=== PATIENT | male | born 1950 | race African-American/Black ===

== ENCOUNTER 2018-08-28 23:11 | Inpatient (IN) | payer MEDICARE ==
[2018-08-29] VITALS: BP 137/82
[2018-08-29] MEDS ORDERED: Magnesium Hydroxide (MOM) 30 mL UDC PO PRN (00:54)
[2018-08-29] MEDS ORDERED: Maalox 30 mL Cup PO PRN (00:54)
[2018-08-29 07:43] LABS: ANION GAP 13.1 (7.0-16.0); BUN - UREA NITROGEN 12 mg/dL (7-25); CARBON DIOXIDE 25.7 mEq/L (21.0-31.0); CHLORIDE 104 mEq/L (98-107); CHOLESTEROL 132 mg/dL (<200); CREATININE - SERUM 0.7 mg/dL (0.7-1.3); GFR AFRICAN-AMERICAN > 60.0 ml/min (>90); GFR NON AFRICAN-AMERICAN > 60.0 ml/min; GLUCOSE 100 mg/dL (70-105); HDL -HIGH DENSITY LIPOPROTEIN 36 mg/dL (23-92); POTASSIUM SERUM 3.8 mEq/L (3.5-5.1); SODIUM SERUM 139 mEq/L (136-145); TRIGLYCERIDES 65 mg/dL (<150); VALPROIC ACID < 10.0 ug/mL (50.0-100.0)
[2018-08-29] MEDS: Multivitamin Tab PO SCH (08:39)
[2018-08-29 10:01] LABS: HEMATOCRIT 43.9 % (41.0-60); HEMOGLOBIN 14.2 gm/dL (12-16); MEAN CELL VOLUME 89.6 fl (80-99); MEAN CORPUSCULAR HEMOGLOBIN 28.9 pg (27.0-31.0); MEAN CORPUSCULAR HGB CONC 32.3 pg (28.0-36.0); PLATELET COUNT 159 Th/cmm (150-400); RED BLOOD COUNT 4.89 Mil/cmm (3.80-5.80); RED CELL DISTRIBUTION WIDTH 15.8 % (11.5-20.0); WHITE BLOOD COUNT 8.1 Th/cmm (4.8-10.8)
[2018-08-29 10:02] LABS: MEAN PLATELET VOLUME 7.8 fl
[2018-08-29 11:22] LABS: BAND NEUTROPHILE 0 % (0-10); LYMPHOCYTE 27.9 % (20-50); MONOCYTE 15.4 % (2-10)
[2018-08-29 11:23] LABS: BASOPHIL 0.4 % (0-3); EOSINOPHIL 4.3 % (0-5)
--- NOTE | 2018-08-29 21:06 | History & Physical ---
ADMIT DATE: 08/29/2018 HISTORY OF PRESENT ILLNESS: The patient is a 68-year-old male with long history of gastroesophageal reflux, degenerative joint disease, chronic back pain, schizophrenia, admitted to [facility] under Dr. Dupree's service. The patient denies any chest pain, shortness of breath, nausea, vomiting, fever or chills. PAST MEDICAL HISTORY: Significant for chronic back pain, degenerative joint disease, gastroesophageal reflux, schizophrenia. PAST SURGICAL HISTORY: No recent surgery. ALLERGIES: None. MEDICATIONS: Follow admission reconciliation. SOCIAL HISTORY: No smoker, no alcohol, no drugs. FAMILY HISTORY: Noncontributory. REVIEW OF SYSTEMS: RENAL SYSTEM: No history of chronic renal disorder. CARDIOVASCULAR SYSTEM: No coronary artery disease. ENDOCRINE SYSTEM: No diabetes or thyroid problem. GASTROINTESTINAL SYSTEM: No upper or lower GI bleed. NEUROLOGICAL SYSTEM: No seizure disorder. MUSCULOSKELETAL SYSTEM: Has degenerative joint disease, chronic back pain. HEMATOLOGIC SYSTEM: No bleeding tendencies. RESPIRATORY SYSTEM: No asthma. GENITOURINARY SYSTEM: No dysuria or hematuria. PHYSICAL EXAMINATION: GENERAL: He is awake, alert, oriented. VITAL SIGNS: Temperature 97.6, heart rate 69, blood pressure 106/70. HEENT: Normocephalic. Pupils are reactive to light and accommodation. Sclerae clear. NECK: Supple. Negative for lymphadenopathy, JVD or bruit. CHEST: Entry of air bilaterally normal. No rhonchi or wheezing. HEART: S1, S2, normal. No gallop rhythm. ABDOMEN: Soft, bowel sounds positive. EXTREMITIES: No edema. BACK: Normal vertebral. GENITALIA AND RECTAL: Done by primary physician, no complaint. NEUROLOGIC: He is awake, alert, oriented, no focal motor deficit. ASSESSMENT: 1. Degenerative joint disease. 2. Chronic back pain. 3. Gastroesophageal reflux. 4. Schizophrenia. PLAN: The patient admitted to the hospital under Dr. Dupree's service. Medical problem addressed during hospitalization is schizophrenia. Medical problems addressed at discharge are gastroesophageal reflux, chronic back pain, and degenerative joint disease. The patient is medically stable for activity. Thank you Dr. Dupree for asking me to see your patient. The patient is a full code. JOB# [id number]
--- NOTE | 2018-08-30 04:22 | Psychiatric Evaluation ---
DATE OF SERVICE: 08/28/2018 IDENTIFYING DATA: The patient is a 68-year-old -Portuguese male, admitted here on 5150 as a danger to self and others after he was referred from the [facility]. CHIEF COMPLAINT: "I do not care, get me out of here." HISTORY OF PRESENT ILLNESS: The patient has been reported to be at a senior care facility and the patient is reported to have been very agitated and became combative. The patient is also reported to be hallucinating. [facility] and has been advised psychiatric hospitalization for the psychosis and agitated behavior. The patient has been noted to be very delusional and forgetful. The patient has been stating his brother is , even though the brother has been visiting him frequently. The patient has been reported to be noncompliant with the medication. The patient believes that at some point gave him spices to eat which began to cause him paranoia. The patient, at this time, is not making much sense, but the patient is screaming and yelling. PAST PSYCHIATRIC HISTORY: The patient was hospitalized here in 2016. MEDICAL HISTORY: Physical examination is requested to be done by Dr. Hollis. SUBSTANCE ABUSE HISTORY: None. PHYSICAL OR SEXUAL ABUSE HISTORY: None. LEGAL PROBLEMS: None at this time. MENTAL STATUS EXAMINATION: The patient is a 68-year-old, looking his stated age, superficially cooperative. Eye contact is poor. Mood is irritable. Affect is constricted. Insight and judgment are noted to be still impaired. Impulse control is noted to be limited. The patient is screaming and yelling at this time. The patient's short and long-term memory are noted to very poor. Attention span and concentration are noted to be very poor. DIAGNOSTIC IMPRESSION: AXIS I: A. Psychotic disorder, not otherwise specified. B. Dementia and behavioral change, secondary trait. IMMEDIATE TREATMENT PLAN: The patient is going to be observed on the inpatient unit, provided with supportive psychotherapy. The patient is going to be closely monitored and will be encouraged to verbalize the concerns rather than to act out. ESTIMATED LENGTH OF STAY: 3-5 days. DISCHARGE CRITERIA: When the patient is no longer a threat to self or others and be able to cope up with the stress. JOB# [id number]
[2018-08-30] MEDS: Multivitamin Tab PO SCH (08:32)
--- NOTE | 2018-08-30 21:21 | Internal Medicine Prog Note ---
Internal Medicine Subjective - Subjective Service Date: 08/30/18 Patient seen and examined:: without staff (HE FEELS WELL) Patient is:: awake, verbal, in bed, talking Per staff patient has:: no adverse event Internal Medicine Objective - Results Result Diagrams: 08/29/18 06:00 08/29/18 06:00 Recent Labs: Laboratory Last Values WBC 8.1 Th/cmm (4.8-10.8) 08/29/18 06:00 RBC 4.89 Mil/cmm (3.80-5.80) 08/29/18 06:00 Hgb 14.2 gm/dL (12-16) 08/29/18 06:00 Hct 43.9 % (41.0-60) 08/29/18 06:00 MCV 89.6 fl (80-99) 08/29/18 06:00 MCH 28.9 pg (27.0-31.0) 08/29/18 06:00 MCHC Differential 32.3 pg (28.0-36.0) 08/29/18 06:00 RDW 15.8 % (11.5-20.0) 08/29/18 06:00 Plt Count 159 Th/cmm (150-400) 08/29/18 06:00 MPV 7.8 fl 08/29/18 06:00 Add Manual Diff YES 08/29/18 06:00 Band Neutrophils % 0 % (0-10) 08/29/18 06:00 Neutrophils (Manual) 52.0 % (40-80) 08/29/18 06:00 Lymphocytes 27.9 % (20-50) 08/29/18 06:00 Monocytes 15.4 % (2-10) H 08/29/18 06:00 Eosinophils 4.3 % (0-5) 08/29/18 06:00 Basophils 0.4 % (0-3) 08/29/18 06:00 Sodium 139 mEq/L (136-145) 08/29/18 06:00 Potassium 3.8 mEq/L (3.5-5.1) 08/29/18 06:00 Chloride 104 mEq/L (98-107) 08/29/18 06:00 Carbon Dioxide 25.7 mEq/L (21.0-31.0) 08/29/18 06:00 Anion Gap 13.1 (7.0-16.0) 08/29/18 06:00 BUN 12 mg/dL (7-25) 08/29/18 06:00 Creatinine 0.7 mg/dL (0.7-1.3) 08/29/18 06:00 Est GFR ( Amer) > 60.0 ml/min (>90) 08/29/18 06:00 Est GFR (Non-Af Amer) > 60.0 ml/min 08/29/18 06:00 BUN/Creatinine Ratio 17.1 08/29/18 06:00 Glucose 100 mg/dL (70-105) 08/29/18 06:00 POC Glucose 93 MG/DL (70 - 105) 08/29/18 06:18 Calcium 9.0 mg/dL (8.6-10.3) 08/29/18 06:00 Triglycerides 65 mg/dL (<150) 08/29/18 06:00 Cholesterol 132 mg/dL (<200) 08/29/18 06:00 LDL Cholesterol Direct 78 mg/dL (75-193) 08/29/18 06:00 HDL Cholesterol 36 mg/dL (23-92) 08/29/18 06:00 TSH 1.94 uIU/ml (0.34-5.60) 08/29/18 06:00 Valproic Acid < 10.0 ug/mL (50.0-100.0) L 08/29/18 06:00 - Physical Exam Vitals and I&O: Vital Signs Temp 97.6 F 08/30/18 20:40 Pulse 65 08/30/18 20:40 Resp 19 08/30/18 20:40 BP 104/79 08/30/18 20:40 Pulse Ox 97 08/30/18 20:40 Intake & Output 08/30/18 08/30/18 08/31/18 06:59 18:59 06:59 Intake Total 300 1450 Balance 300 1450 Intake: Oral 300 1450 Other: # Voids 2 3 # Bowel Movements 0 0 Stool Characteristics Soft Soft Active Medications: Current Medications Acetaminophen (Tylenol) 650 mg PO Q4HR PRN PRN Reason: Mild Pain / Temp above 100 Stop: 10/28/18 00:53 Al Hydrox/Mg Hydrox/Simethicone (Maalox) 30 ml PO Q4HR PRN PRN Reason: GI DISTRESS Stop: 10/28/18 00:53 Benztropine Mesylate (Cogentin) 0.5 mg PO HS VIKTOR Stop: 10/29/18 20:59 Last Admin: 08/30/18 20:59 Dose: 0.5 mg Lorazepam (Ativan) 0.5 mg PO Q6HR PRN; Protocol PRN Reason: Anxiety Stop: 09/28/18 00:53 Magnesium Hydroxide (Milk Of Magnesia) 30 ml PO HS PRN PRN Reason: Constipation Multivitamins/Vitamin C (Theragran) 1 tab PO DAILY VIKTOR Stop: 10/28/18 08:59 Last Admin: 08/30/18 08:32 Dose: Not Given Olanzapine (Zyprexa Zydis) 5 mg PO HS VIKTOR; Protocol Stop: 10/29/18 20:59 Temazepam (Restoril) 15 mg PO HS PRN; Protocol PRN Reason: Insomnia Stop: 10/28/18 21:23 General: alert HEENT: NC/AT, PERRLA, EOMI, anicteric sclerae, throat clear Neck: Supple, No JVD, No thyromegaly, +2 carotid pulse wo bruit, No LAD, + JVD Lungs: CTAB Cardiovascular: Normal S1, Normal S2, without murmur Abdomen: soft, non-tender, non-distended Extremities: clear Neurological: no change - Procedures Procedures: Procedures Procedure Code Date GROUP PSYCHOTHERAPY 49316 09/09/15 GROUP PSYCHOTHERAPY GZHZZZZ 09/09/15 GROUP PSYCHOTHERAPY 91342 08/25/15 GROUP PSYCHOTHERAPY GZHZZZZ 08/25/15 Internal Medicine Assmt/Plan - Assessment Assessment: 1.CLAUDIO. 2.DJD. 3.PSYCHOSIS - Plan Plan: CONTINUE ON CURRENT MEDICATION AND DIET.
[2018-08-30] MEDS: OLANZapine 5 mg Oral Disintegrating Tab PO SCH (22:52)
--- NOTE | 2018-08-31 08:51 | Consultation ---
DATE OF CONSULTATION: 08/30/2018 REFERRING PHYSICIAN: Ruthy Penaloza M.D. TYPE OF CONSULTATION: Psychology. HISTORY OF PRESENT ILLNESS: The patient is a 68-year-old -[place] male. The patient is being admitted on a 5150 as a danger to self and others. The patient was referred to the geropsychiatric unit from [facility]. The following his by record review and by the patient's self-report. Upon interview, the patient stated that he needed to get out of here and was demanding to be discharged immediately. The staff at the patient's facility report that he had become very agitated and combative. The patient possibly is hallucinating. The patient is stating that his brother is despite his brother being living and has visited him in the recent past according to the staff at his facility. They also report that the patient had become noncompliant with his medication. The patient was easily frustrated and at times was yelling during the clinical interview. PAST MEDICAL HISTORY: Please see history and physical by Dr. Hollis. PAST PSYCHIATRIC HISTORY: The patient has multiple previous psychiatric hospitalizations. The patient's last hospitalization here at [facility] was in 2016. The patient is under the care of a psychiatrist at his placement. SUBSTANCE ABUSE HISTORY: The patient denied any history of alcohol, tobacco or illicit drug use. PSYCHOSOCIAL HISTORY: The patient did not answer questions about occupational or educational history. The patient states his amish affiliation is Evangelical. The patient states he has a brother named, Sherman. The patient stated that he believes his brother is ; however, records indicate that the patient's brother, Sherman, visits him on a regular basis. The patient did not answer questions about history of physical or sexual abuse or current legal problems. MENTAL STATUS EXAMINATION: The patient appears to be his stated age. The patient's attitude is uncooperative. Eye contact is poor. Speech is loud. Mood is irritable. Affect is constricted. Thought process shows to be confused. The patient may be experiencing paranoid ideation. The patient did not answer questions about experiencing suicidal ideation, plan or intention. He did not answer questions about auditory or visual hallucinations; however, this needs further evaluation. The patient's behavior has been intermittently explosive with yelling episodes and aggressive behavior. Impulse control is inadequate. Concentration is poor. The patient did not participate in the memory assessment; however, superficial examination indicates the patient's short-term memory and long-term memory are most likely impaired; this needs further evaluation. Sensorium is alert and oriented to self only. The patient did not participate in the interpretation of proverbs. Insight is impaired. Judgment is impaired. DIAGNOSTIC IMPRESSION: AXIS I: 1. Psychotic disorder, not otherwise specified. 2. Dementia with behavioral disturbance. AXIS II: Deferred. AXIS III: Per Dr. Hollis. TREATMENT PLAN: The patient has been seen by Dr. Penaloza for psychiatric evaluation and for the management of the patient's psychotropic medications. We will provide supportive psychotherapy to include reality orientation, differentiation and integration. We will provide de-escalation and limit setting as well as anger management. We will encourage the patient to demonstrate emotional and self-regulation and to verbalize his concerns versus acting out. We will provide motivational enhancement for the patient to become compliant and stay compliant with all aspects of his care and treatment. We will encourage the patient on a daily basis to verbally contract for safety including no self-harm and no harm to others. We will continue to provide stress management to increase the patient's frustration tolerance and to assist him in the acquisition of coping skills. Thank you, Dr. Penaloza, for this consult and the opportunity to participate in this patient's care. [facility]# [id number] FARZANEH
[2018-08-31] MEDS: Multivitamin Tab PO SCH (08:54)
--- NOTE | 2018-08-31 14:50 | Progress Notes ---
DATE: 08/30/2018 SUBJECTIVE: The patient was seen, still anxious, angry, still irritable, having episodes of yelling. The patient required being given emergency medications earlier today. ASSESSMENT: The patient still in psychotic phase. PLAN: Continue stabilization. Continue supportive measures, monitor closely. We will discontinue risperidone, use Zyprexa 5 mg p.o. at bedtime, increase dose gradually. [facility]# [id number]
--- NOTE | 2018-08-31 17:27 | Internal Medicine Prog Note ---
Internal Medicine Subjective - Subjective Service Date: 08/31/18 Patient seen and examined:: with staff Patient is:: awake, verbal, in bed, talking Per staff patient has:: no adverse event Internal Medicine Objective - Results Result Diagrams: 08/29/18 06:00 08/29/18 06:00 Recent Labs: Laboratory Last Values WBC 8.1 Th/cmm (4.8-10.8) 08/29/18 06:00 RBC 4.89 Mil/cmm (3.80-5.80) 08/29/18 06:00 Hgb 14.2 gm/dL (12-16) 08/29/18 06:00 Hct 43.9 % (41.0-60) 08/29/18 06:00 MCV 89.6 fl (80-99) 08/29/18 06:00 MCH 28.9 pg (27.0-31.0) 08/29/18 06:00 MCHC Differential 32.3 pg (28.0-36.0) 08/29/18 06:00 RDW 15.8 % (11.5-20.0) 08/29/18 06:00 Plt Count 159 Th/cmm (150-400) 08/29/18 06:00 MPV 7.8 fl 08/29/18 06:00 Add Manual Diff YES 08/29/18 06:00 Band Neutrophils % 0 % (0-10) 08/29/18 06:00 Neutrophils (Manual) 52.0 % (40-80) 08/29/18 06:00 Lymphocytes 27.9 % (20-50) 08/29/18 06:00 Monocytes 15.4 % (2-10) H 08/29/18 06:00 Eosinophils 4.3 % (0-5) 08/29/18 06:00 Basophils 0.4 % (0-3) 08/29/18 06:00 Sodium 139 mEq/L (136-145) 08/29/18 06:00 Potassium 3.8 mEq/L (3.5-5.1) 08/29/18 06:00 Chloride 104 mEq/L (98-107) 08/29/18 06:00 Carbon Dioxide 25.7 mEq/L (21.0-31.0) 08/29/18 06:00 Anion Gap 13.1 (7.0-16.0) 08/29/18 06:00 BUN 12 mg/dL (7-25) 08/29/18 06:00 Creatinine 0.7 mg/dL (0.7-1.3) 08/29/18 06:00 Est GFR ( Amer) > 60.0 ml/min (>90) 08/29/18 06:00 Est GFR (Non-Af Amer) > 60.0 ml/min 08/29/18 06:00 BUN/Creatinine Ratio 17.1 08/29/18 06:00 Glucose 100 mg/dL (70-105) 08/29/18 06:00 POC Glucose 93 MG/DL (70 - 105) 08/29/18 06:18 Calcium 9.0 mg/dL (8.6-10.3) 08/29/18 06:00 Triglycerides 65 mg/dL (<150) 08/29/18 06:00 Cholesterol 132 mg/dL (<200) 08/29/18 06:00 LDL Cholesterol Direct 78 mg/dL (75-193) 08/29/18 06:00 HDL Cholesterol 36 mg/dL (23-92) 08/29/18 06:00 TSH 1.94 uIU/ml (0.34-5.60) 08/29/18 06:00 Valproic Acid < 10.0 ug/mL (50.0-100.0) L 08/29/18 06:00 - Physical Exam Vitals and I&O: Vital Signs Temp 97.8 F 08/31/18 14:00 Pulse 68 08/31/18 14:00 Resp 20 08/31/18 14:00 BP 110/72 08/31/18 14:00 Pulse Ox 98 08/31/18 14:00 Intake & Output 08/30/18 08/31/18 08/31/18 18:59 06:59 18:59 Intake Total 1450 240 Balance 1450 240 Intake: Oral 1450 240 Other: # Voids 3 3 # Bowel Movements 0 0 Stool Characteristics Soft Soft Active Medications: Current Medications Acetaminophen (Tylenol) 650 mg PO Q4HR PRN PRN Reason: Mild Pain / Temp above 100 Stop: 10/28/18 00:53 Al Hydrox/Mg Hydrox/Simethicone (Maalox) 30 ml PO Q4HR PRN PRN Reason: GI DISTRESS Stop: 10/28/18 00:53 Benztropine Mesylate (Cogentin) 0.5 mg PO HS VIKTOR Stop: 10/29/18 20:59 Last Admin: 08/30/18 20:59 Dose: 0.5 mg Lorazepam (Ativan) 0.5 mg PO Q6HR PRN; Protocol PRN Reason: Anxiety Stop: 09/28/18 00:53 Last Admin: 08/31/18 16:42 Dose: 0.5 mg Magnesium Hydroxide (Milk Of Magnesia) 30 ml PO HS PRN PRN Reason: Constipation Multivitamins/Vitamin C (Theragran) 1 tab PO DAILY VIKTOR Stop: 10/28/18 08:59 Last Admin: 08/31/18 08:54 Dose: 1 tab Olanzapine (Zyprexa Zydis) 5 mg PO HS VIKTOR; Protocol Stop: 10/29/18 20:59 Last Admin: 08/30/18 22:52 Dose: 5 mg Temazepam (Restoril) 15 mg PO HS PRN; Protocol PRN Reason: Insomnia Stop: 10/28/18 21:23 General: alert HEENT: NC/AT, PERRLA, EOMI, anicteric sclerae, throat clear Neck: Supple, No JVD, No thyromegaly, +2 carotid pulse wo bruit, No LAD, + JVD Lungs: CTAB Cardiovascular: Normal S1, Normal S2, without murmur Abdomen: soft, non-tender, non-distended Extremities: clear Neurological: no change - Procedures Procedures: Procedures Procedure Code Date GROUP PSYCHOTHERAPY 36009 09/09/15 GROUP PSYCHOTHERAPY GZHZZZZ 09/09/15 GROUP PSYCHOTHERAPY 30888 08/25/15 GROUP PSYCHOTHERAPY GZHZZZZ 08/25/15 Internal Medicine Assmt/Plan - Assessment Assessment: 1.CLAUDIO. 2.DJD. 3.PSYCHOSIS - Plan Plan: CONTINUE ON CURRENT MEDICATION AND DIET.
[2018-08-31] MEDS: OLANZapine 5 mg Oral Disintegrating Tab PO SCH (20:23)
--- NOTE | 2018-08-31 23:27 | Progress Notes ---
DATE: 08/31/2018 SUBJECTIVE: The patient was seen, discussed with staff. Remains anxious, irritable, and inappropriate at times. Having yelling episodes. The patient continues to make statements, his brother is and believes that his caused all his problems. ASSESSMENT: The patient still highly paranoid, anxious, and still delusional. PLAN: Continue supportive measures. Continue medication management. Continue Zyprexa 5 mg p.o. at bedtime. JOB# [id number]
[2018-09-01] MEDS: Multivitamin Tab PO SCH (15:06)
[2018-09-01] MEDS ORDERED: OLANZapine 5 mg Oral Disintegrating Tab PO ONE (17:45)
--- NOTE | 2018-09-01 20:49 | Internal Medicine Prog Note ---
Internal Medicine Subjective - Subjective Service Date: 09/01/18 Patient seen and examined:: without staff (HE FEELS WELL) Patient is:: awake, verbal, in bed, talking Per staff patient has:: no adverse event Internal Medicine Objective - Results Result Diagrams: 08/29/18 06:00 08/29/18 06:00 Recent Labs: Laboratory Last Values WBC 8.1 Th/cmm (4.8-10.8) 08/29/18 06:00 RBC 4.89 Mil/cmm (3.80-5.80) 08/29/18 06:00 Hgb 14.2 gm/dL (12-16) 08/29/18 06:00 Hct 43.9 % (41.0-60) 08/29/18 06:00 MCV 89.6 fl (80-99) 08/29/18 06:00 MCH 28.9 pg (27.0-31.0) 08/29/18 06:00 MCHC Differential 32.3 pg (28.0-36.0) 08/29/18 06:00 RDW 15.8 % (11.5-20.0) 08/29/18 06:00 Plt Count 159 Th/cmm (150-400) 08/29/18 06:00 MPV 7.8 fl 08/29/18 06:00 Add Manual Diff YES 08/29/18 06:00 Band Neutrophils % 0 % (0-10) 08/29/18 06:00 Neutrophils (Manual) 52.0 % (40-80) 08/29/18 06:00 Lymphocytes 27.9 % (20-50) 08/29/18 06:00 Monocytes 15.4 % (2-10) H 08/29/18 06:00 Eosinophils 4.3 % (0-5) 08/29/18 06:00 Basophils 0.4 % (0-3) 08/29/18 06:00 Sodium 139 mEq/L (136-145) 08/29/18 06:00 Potassium 3.8 mEq/L (3.5-5.1) 08/29/18 06:00 Chloride 104 mEq/L (98-107) 08/29/18 06:00 Carbon Dioxide 25.7 mEq/L (21.0-31.0) 08/29/18 06:00 Anion Gap 13.1 (7.0-16.0) 08/29/18 06:00 BUN 12 mg/dL (7-25) 08/29/18 06:00 Creatinine 0.7 mg/dL (0.7-1.3) 08/29/18 06:00 Est GFR ( Amer) > 60.0 ml/min (>90) 08/29/18 06:00 Est GFR (Non-Af Amer) > 60.0 ml/min 08/29/18 06:00 BUN/Creatinine Ratio 17.1 08/29/18 06:00 Glucose 100 mg/dL (70-105) 08/29/18 06:00 POC Glucose 93 MG/DL (70 - 105) 08/29/18 06:18 Calcium 9.0 mg/dL (8.6-10.3) 08/29/18 06:00 Triglycerides 65 mg/dL (<150) 08/29/18 06:00 Cholesterol 132 mg/dL (<200) 08/29/18 06:00 LDL Cholesterol Direct 78 mg/dL (75-193) 08/29/18 06:00 HDL Cholesterol 36 mg/dL (23-92) 08/29/18 06:00 TSH 1.94 uIU/ml (0.34-5.60) 08/29/18 06:00 Valproic Acid < 10.0 ug/mL (50.0-100.0) L 08/29/18 06:00 - Physical Exam Vitals and I&O: Vital Signs Temp 98.4 F 09/01/18 20:18 Pulse 73 09/01/18 20:18 Resp 20 09/01/18 20:18 BP 155/73 09/01/18 20:18 Pulse Ox 96 09/01/18 20:18 Intake & Output 09/01/18 09/01/18 09/02/18 06:59 18:59 06:59 Intake Total 120 480 Balance 120 480 Intake: Oral 120 480 Other: # Voids 2 1 # Bowel Movements 0 Stool Characteristics Soft Soft Active Medications: Current Medications Acetaminophen (Tylenol) 650 mg PO Q4HR PRN PRN Reason: Mild Pain / Temp above 100 Stop: 10/28/18 00:53 Al Hydrox/Mg Hydrox/Simethicone (Maalox) 30 ml PO Q4HR PRN PRN Reason: GI DISTRESS Stop: 10/28/18 00:53 Benztropine Mesylate (Cogentin) 0.5 mg PO HS VIKTOR Stop: 10/29/18 20:59 Last Admin: 08/31/18 20:23 Dose: Not Given Lorazepam (Ativan) 0.5 mg PO Q6HR PRN; Protocol PRN Reason: Anxiety Stop: 09/28/18 00:53 Last Admin: 09/01/18 15:06 Dose: 0.5 mg Magnesium Hydroxide (Milk Of Magnesia) 30 ml PO HS PRN PRN Reason: Constipation Multivitamins/Vitamin C (Theragran) 1 tab PO DAILY VIKTOR Stop: 10/28/18 08:59 Last Admin: 09/01/18 15:06 Dose: 1 tab Olanzapine (Zyprexa Zydis) 5 mg PO HS VIKTOR; Protocol Stop: 10/29/18 20:59 Last Admin: 08/31/18 20:23 Dose: Not Given Temazepam (Restoril) 15 mg PO HS PRN; Protocol PRN Reason: Insomnia Stop: 10/28/18 21:23 General: alert HEENT: NC/AT, PERRLA, EOMI, anicteric sclerae, throat clear Neck: Supple, No JVD, No thyromegaly, +2 carotid pulse wo bruit, No LAD, + JVD Lungs: CTAB Cardiovascular: Normal S1, Normal S2, without murmur Abdomen: soft, non-tender, non-distended Extremities: clear Neurological: no change - Procedures Procedures: Procedures Procedure Code Date GROUP PSYCHOTHERAPY 59229 09/09/15 GROUP PSYCHOTHERAPY GZHZZZZ 09/09/15 GROUP PSYCHOTHERAPY 46073 08/25/15 GROUP PSYCHOTHERAPY GZHZZZZ 08/25/15 Internal Medicine Assmt/Plan - Assessment Assessment: 1.CLAUDIO. 2.DJD. 3.PSYCHOSIS - Plan Plan: CONTINUE ON CURRENT MEDICATION AND DIET.
[2018-09-01] MEDS: OLANZapine 5 mg Oral Disintegrating Tab PO SCH (21:22)
--- NOTE | 2018-09-02 03:36 | Progress Notes ---
DATE: 09/01/2018 SUBJECTIVE: I met with the patient, was seen today, discussed with staff, chart reviewed. Continues to have episodes of yelling episodes where he requires redirecting by staff. The patient is taking his clothes off. The patient is still talking to himself, still highly paranoid. ASSESSMENT: The patient is still in psychotic phase. PLAN: Continue stabilization. Encourage the patient to remain compliant. The patient was started on Zyprexa last night, he did not take the first dose. The patient said he is not sure what he wants to take for medication. JOB# [id number]
[2018-09-02] MEDS: Multivitamin Tab PO SCH (08:52)
--- NOTE | 2018-09-02 21:13 | Internal Medicine Prog Note ---
Internal Medicine Subjective - Subjective Service Date: 09/02/18 Patient seen and examined:: with staff (HE FEELS WELL) Patient is:: awake, verbal, in bed, talking Per staff patient has:: no adverse event Internal Medicine Objective - Results Result Diagrams: 08/29/18 06:00 08/29/18 06:00 Recent Labs: Laboratory Last Values WBC 8.1 Th/cmm (4.8-10.8) 08/29/18 06:00 RBC 4.89 Mil/cmm (3.80-5.80) 08/29/18 06:00 Hgb 14.2 gm/dL (12-16) 08/29/18 06:00 Hct 43.9 % (41.0-60) 08/29/18 06:00 MCV 89.6 fl (80-99) 08/29/18 06:00 MCH 28.9 pg (27.0-31.0) 08/29/18 06:00 MCHC Differential 32.3 pg (28.0-36.0) 08/29/18 06:00 RDW 15.8 % (11.5-20.0) 08/29/18 06:00 Plt Count 159 Th/cmm (150-400) 08/29/18 06:00 MPV 7.8 fl 08/29/18 06:00 Add Manual Diff YES 08/29/18 06:00 Band Neutrophils % 0 % (0-10) 08/29/18 06:00 Neutrophils (Manual) 52.0 % (40-80) 08/29/18 06:00 Lymphocytes 27.9 % (20-50) 08/29/18 06:00 Monocytes 15.4 % (2-10) H 08/29/18 06:00 Eosinophils 4.3 % (0-5) 08/29/18 06:00 Basophils 0.4 % (0-3) 08/29/18 06:00 Sodium 139 mEq/L (136-145) 08/29/18 06:00 Potassium 3.8 mEq/L (3.5-5.1) 08/29/18 06:00 Chloride 104 mEq/L (98-107) 08/29/18 06:00 Carbon Dioxide 25.7 mEq/L (21.0-31.0) 08/29/18 06:00 Anion Gap 13.1 (7.0-16.0) 08/29/18 06:00 BUN 12 mg/dL (7-25) 08/29/18 06:00 Creatinine 0.7 mg/dL (0.7-1.3) 08/29/18 06:00 Est GFR ( Amer) > 60.0 ml/min (>90) 08/29/18 06:00 Est GFR (Non-Af Amer) > 60.0 ml/min 08/29/18 06:00 BUN/Creatinine Ratio 17.1 08/29/18 06:00 Glucose 100 mg/dL (70-105) 08/29/18 06:00 POC Glucose 93 MG/DL (70 - 105) 08/29/18 06:18 Calcium 9.0 mg/dL (8.6-10.3) 08/29/18 06:00 Triglycerides 65 mg/dL (<150) 08/29/18 06:00 Cholesterol 132 mg/dL (<200) 08/29/18 06:00 LDL Cholesterol Direct 78 mg/dL (75-193) 08/29/18 06:00 HDL Cholesterol 36 mg/dL (23-92) 08/29/18 06:00 TSH 1.94 uIU/ml (0.34-5.60) 08/29/18 06:00 Valproic Acid < 10.0 ug/mL (50.0-100.0) L 08/29/18 06:00 - Physical Exam Vitals and I&O: Vital Signs Temp 97.9 F 09/02/18 20:00 Pulse 69 09/02/18 20:00 Resp 18 09/02/18 20:00 BP 105/71 09/02/18 20:00 Pulse Ox 100 09/02/18 20:00 Intake & Output 09/02/18 09/02/18 09/03/18 06:59 18:59 06:59 Intake Total 600 1000 Balance 600 1000 Intake: Oral 600 1000 Other: # Voids 1 4 # Bowel Movements 0 1 Stool Characteristics Soft Soft Active Medications: Current Medications Acetaminophen (Tylenol) 650 mg PO Q4HR PRN PRN Reason: Mild Pain / Temp above 100 Stop: 10/28/18 00:53 Last Admin: 09/02/18 01:28 Dose: 650 mg Al Hydrox/Mg Hydrox/Simethicone (Maalox) 30 ml PO Q4HR PRN PRN Reason: GI DISTRESS Stop: 10/28/18 00:53 Benztropine Mesylate (Cogentin) 0.5 mg PO HS VIKTOR Stop: 10/29/18 20:59 Last Admin: 09/01/18 21:22 Dose: Not Given Lorazepam (Ativan) 0.5 mg PO Q6HR PRN; Protocol PRN Reason: Anxiety Stop: 09/28/18 00:53 Last Admin: 09/02/18 17:33 Dose: 0.5 mg Magnesium Hydroxide (Milk Of Magnesia) 30 ml PO HS PRN PRN Reason: Constipation Multivitamins/Vitamin C (Theragran) 1 tab PO DAILY VIKTOR Stop: 10/28/18 08:59 Last Admin: 09/02/18 08:52 Dose: 1 tab Olanzapine (Zyprexa Zydis) 5 mg PO HS VIKTOR; Protocol Stop: 10/29/18 20:59 Last Admin: 09/01/18 21:22 Dose: Not Given Temazepam (Restoril) 15 mg PO HS PRN; Protocol PRN Reason: Insomnia Stop: 10/28/18 21:23 General: alert HEENT: NC/AT, PERRLA, EOMI, anicteric sclerae, throat clear Neck: Supple, No JVD, No thyromegaly, +2 carotid pulse wo bruit, No LAD, + JVD Lungs: CTAB Cardiovascular: Normal S1, Normal S2, without murmur Abdomen: soft, non-tender, non-distended Extremities: clear Neurological: no change - Procedures Procedures: Procedures Procedure Code Date GROUP PSYCHOTHERAPY 65809 09/09/15 GROUP PSYCHOTHERAPY GZHZZZZ 09/09/15 GROUP PSYCHOTHERAPY 57787 08/25/15 GROUP PSYCHOTHERAPY GZHZZZZ 08/25/15 Internal Medicine Assmt/Plan - Assessment Assessment: 1.CLAUDIO. 2.DJD. 3.PSYCHOSIS - Plan Plan: CONTINUE ON CURRENT MEDICATION AND DIET. Nutritional Asmnt/Malnutr-PDOC - Dietary Evaluation Malnutrition Findings (Please click <Entered> for more info): Nutritional Asmnt/Malnutrition Start: 09/02/18 09: 03 Text: Status: Complete Freq: Protocol: Document 09/02/18 09:03 KHRIS (Rec: 09/02/18 09:20 KHRIS VALDES- FNS1) Nutritional Asmnt/Malnutrition Patient General Information Nutritional Screening Low Risk Diagnosis Psychosis Pertinent Medical Hx/Surgical Hx chronic back pain, degenerative joint disease, gastroesophageal reflux, schizophrenia. Subjective Information Per nursing notes, sexually inappropriate, withdrawn. Patient in room with the door closed. Not appropriate for dietary education Current Diet Order/ Nutrition Support Regular Patient / S.O Not Indicated Pertinent Medications Maalox, MOM, Theragran Pertinent Labs WNL Nutritional Hx/Data Height 1.8 m Height (Calculated Centimeters) 180.3 Current Weight (lbs) 89.811 kg Weight (Calculated Kilograms) 89.8 Weight (Calculated Grams) 61433.3 [place] Body Weight 172 % [place] Body Weight 115 Body Mass Index (BMI) 27.6 Recent Weight Change No Weight Status Overweight GI Symptoms GI Symptoms None Last BM 08/31 x 1 Difficult in: None Food Allergies No Cultural/Ethnic/Quaker Belief none indicated Usual diet at home unknown Skin Integrity/Comment: Ezekiel 17, intact Current %PO Good (75-100%) Estimated Nutritional Goals BEE in Kcals: Using Current wt Calories/Kcals/Kg CBW 89.8kg 22-27 kcal/kg Kcals Calculated 6888-0091 kcal/day Protein: Using Current wt Protein g/k.8-1 gm/kg Protein Calculated 70-90 gm/day Fluid: ml 5516-5298 ml/day Nutritional Problem No current Nutrition Prob Problem No nutrition diagnosis at this time Intervention/Recommendation Comments Continue regular diet as tolerated by patient. Expected Outcomes/Goals Expected Outcomes/Goals Oral intake >75% of meals, weight stable, nutrition related labs WNL F/U LR 09/09
[2018-09-02] MEDS: OLANZapine 5 mg Oral Disintegrating Tab PO SCH (21:40)
--- NOTE | 2018-09-02 23:54 | Progress Notes ---
DATE: 09/02/2018 SUBJECTIVE: The patient is sitting on the side of bed in his room. The patient was alert, calm and cooperative. The patient complained of some numbness on his right arm as well as the tingling sensation in both feet. The patient reported that he has not been eating well and feels like he is losing weight. The patient reported that he finished reading a book and on the back of the book there was a picture of him when he was weighing 300 pounds. The patient stated that he feels better when he was heavier. The patient reported that he wanted to have a private room and he wanted to pay for it with his debit card. The patient reported that he wanted to go to [facility]; however, the patient was not able to say what would be the reason for him to go to [place]. OBJECTIVE: The patient appeared to be somewhat delusional. The patient was cooperative. Staff reported that the patient has been cooperative with meds. He has been eating and sleeping okay. No recurrent aggressive behavior. ASSESSMENT: Schizophrenia, chronic paranoid type and somewhat improved condition. PLAN: We will continue the patient on current psychotropic medications and monitor the patient's response to the medications. JOB# [id number] FARZANEH
--- NOTE | 2018-09-03 01:01 | Progress Notes ---
DATE: 09/01/2018 PSYCHOLOGY PROGRESS NOTE SUBJECTIVE: The patient is seen and is interviewed. Case is discussed with staff. The staff reports the patient continues to have yelling episodes and requires constant redirection. Staff reports the patient has had episodes of disrobing. The patient appears to be responding to internal stimuli and is suspicious and guarded. OBJECTIVE: Mood is irritable. Affect is constricted. Thought process includes paranoid ideation as well as responding to internal stimuli. The patient did not answer questions about experiencing auditory or visual hallucinations or delusions. The patient's behavior has been difficult to redirect with poor impulse control and intermittent episodes of yelling as well as disrobing. ASSESSMENT AND PLAN: The patient's psychosis persist. We provided reality orientation, differentiation, and integration. We provided de-escalation and limit setting. We encouraged the patient to demonstrate emotional and self-regulation and to verbalize his concerns versus acting out. We provided remotivation for the patient to become compliant with all aspects of his care and treatment and specifically his medication regimen. We provided daily opportunities for the patient to verbally contract for safety. The patient has not contracted for safety during this visit. We will continue the present treatment and followup in 2 days if the patient is still admitted on the unit. JOB# [id number] FARZANEH
[2018-09-03] MEDS ORDERED: OLANZapine 10 mg Oral Disintegrating Tab PO ONE (11:00)
[2018-09-03] MEDS: Multivitamin Tab PO SCH (11:11)
[2018-09-03 14:37] LABS: URINE SOURCE CLEAN C
[2018-09-03 14:39] LABS: URINE BILIRUBIN NEGATIVE (NEGATIVE); URINE BLOOD NEGATIVE (NEGATIVE); URINE GLUCOSE (UA) NEGATIVE (NEGATIVE); URINE KETONE NEGATIVE (NEGATIVE); URINE LEUKOCYTE ESTERASE NEGATIVE (NEGATIVE); URINE NITRATE NEGATIVE (NEGATIVE); URINE PH 6.5 (4.6 - 8.0); URINE PROTEIN NEGATIVE (NEGATIVE); URINE UROBILINOGEN 0.2 E.U./dL (0.2 - 1.0)
[2018-09-03 14:43] LABS: URINE CLARITY CLEAR (CLEAR); URINE COLOR STRAW; URINE MICROSCOPIC INDICATED? NO
--- NOTE | 2018-09-03 17:07 | Internal Medicine Prog Note ---
Internal Medicine Subjective - Subjective Patient seen and examined:: without staff (HE FEELS WELL) Patient is:: awake, verbal, in bed, talking Per staff patient has:: no adverse event Internal Medicine Objective - Results Result Diagrams: 08/29/18 06:00 08/29/18 06:00 Recent Labs: Laboratory Last Values WBC 8.1 Th/cmm (4.8-10.8) 08/29/18 06:00 RBC 4.89 Mil/cmm (3.80-5.80) 08/29/18 06:00 Hgb 14.2 gm/dL (12-16) 08/29/18 06:00 Hct 43.9 % (41.0-60) 08/29/18 06:00 MCV 89.6 fl (80-99) 08/29/18 06:00 MCH 28.9 pg (27.0-31.0) 08/29/18 06:00 MCHC Differential 32.3 pg (28.0-36.0) 08/29/18 06:00 RDW 15.8 % (11.5-20.0) 08/29/18 06:00 Plt Count 159 Th/cmm (150-400) 08/29/18 06:00 MPV 7.8 fl 08/29/18 06:00 Add Manual Diff YES 08/29/18 06:00 Band Neutrophils % 0 % (0-10) 08/29/18 06:00 Neutrophils (Manual) 52.0 % (40-80) 08/29/18 06:00 Lymphocytes 27.9 % (20-50) 08/29/18 06:00 Monocytes 15.4 % (2-10) H 08/29/18 06:00 Eosinophils 4.3 % (0-5) 08/29/18 06:00 Basophils 0.4 % (0-3) 08/29/18 06:00 Sodium 139 mEq/L (136-145) 08/29/18 06:00 Potassium 3.8 mEq/L (3.5-5.1) 08/29/18 06:00 Chloride 104 mEq/L (98-107) 08/29/18 06:00 Carbon Dioxide 25.7 mEq/L (21.0-31.0) 08/29/18 06:00 Anion Gap 13.1 (7.0-16.0) 08/29/18 06:00 BUN 12 mg/dL (7-25) 08/29/18 06:00 Creatinine 0.7 mg/dL (0.7-1.3) 08/29/18 06:00 Est GFR ( Amer) > 60.0 ml/min (>90) 08/29/18 06:00 Est GFR (Non-Af Amer) > 60.0 ml/min 08/29/18 06:00 BUN/Creatinine Ratio 17.1 08/29/18 06:00 Glucose 100 mg/dL (70-105) 08/29/18 06:00 POC Glucose 93 MG/DL (70 - 105) 08/29/18 06:18 Calcium 9.0 mg/dL (8.6-10.3) 08/29/18 06:00 Triglycerides 65 mg/dL (<150) 08/29/18 06:00 Cholesterol 132 mg/dL (<200) 08/29/18 06:00 LDL Cholesterol Direct 78 mg/dL (75-193) 08/29/18 06:00 HDL Cholesterol 36 mg/dL (23-92) 08/29/18 06:00 TSH 1.94 uIU/ml (0.34-5.60) 08/29/18 06:00 Urine Source CLEAN C 09/03/18 14:00 Urine Color STRAW 09/03/18 14:00 Urine Clarity CLEAR (CLEAR) 09/03/18 14:00 Urine pH 6.5 (4.6 - 8.0) 09/03/18 14:00 Ur Specific [place] 1.010 (1.005-1.030) 09/03/18 14:00 Urine Protein NEGATIVE mg/dL (NEGATIVE) 09/03/18 14:00 Urine Glucose (UA) NEGATIVE mg/dL (NEGATIVE) 09/03/18 14:00 Urine Ketones NEGATIVE mg/dL (NEGATIVE) 09/03/18 14:00 Urine Blood NEGATIVE (NEGATIVE) 09/03/18 14:00 Urine Nitrate NEGATIVE (NEGATIVE) 09/03/18 14:00 Urine Bilirubin NEGATIVE (NEGATIVE) 09/03/18 14:00 Urine Urobilinogen 0.2 E.U./dL (0.2 - 1.0) 09/03/18 14:00 Ur Leukocyte Esterase NEGATIVE (NEGATIVE) 09/03/18 14:00 Valproic Acid < 10.0 ug/mL (50.0-100.0) L 08/29/18 06:00 - Physical Exam Vitals and I&O: Vital Signs Temp 97.6 F 09/03/18 06:23 Pulse 72 09/03/18 06:23 Resp 20 09/03/18 06:23 BP 112/76 09/03/18 06:23 Pulse Ox 97 09/03/18 06:23 Intake & Output 09/02/18 09/03/18 09/03/18 18:59 06:59 18:59 Intake Total 1000 120 Balance 1000 120 Intake: Oral 1000 120 Other: # Voids 4 3 # Bowel Movements 1 Stool Characteristics Soft Soft Soft Active Medications: Current Medications Acetaminophen (Tylenol) 650 mg PO Q4HR PRN PRN Reason: Mild Pain / Temp above 100 Stop: 10/28/18 00:53 Last Admin: 09/02/18 01:28 Dose: 650 mg Al Hydrox/Mg Hydrox/Simethicone (Maalox) 30 ml PO Q4HR PRN PRN Reason: GI DISTRESS Stop: 10/28/18 00:53 Benztropine Mesylate (Cogentin) 0.5 mg PO HS VIKTOR Stop: 10/29/18 20:59 Last Admin: 09/02/18 21:40 Dose: Not Given Lorazepam (Ativan) 0.5 mg PO Q6HR PRN; Protocol PRN Reason: Anxiety Stop: 09/28/18 00:53 Last Admin: 09/02/18 17:33 Dose: 0.5 mg Magnesium Hydroxide (Milk Of Magnesia) 30 ml PO HS PRN PRN Reason: Constipation Multivitamins/Vitamin C (Theragran) 1 tab PO DAILY VIKTOR Stop: 10/28/18 08:59 Last Admin: 09/03/18 11:11 Dose: 1 tab Olanzapine (Zyprexa Zydis) 10 mg PO HS VIKTOR; Protocol Stop: 11/02/18 20:59 Temazepam (Restoril) 15 mg PO HS PRN; Protocol PRN Reason: Insomnia Stop: 10/28/18 21:23 General: alert HEENT: NC/AT, PERRLA, EOMI, anicteric sclerae, throat clear Neck: Supple, No JVD, No thyromegaly, +2 carotid pulse wo bruit, No LAD, + JVD Lungs: CTAB Cardiovascular: Normal S1, Normal S2, without murmur Abdomen: soft, non-tender, non-distended Extremities: clear Neurological: no change - Procedures Procedures: Procedures Procedure Code Date GROUP PSYCHOTHERAPY 70780 09/09/15 GROUP PSYCHOTHERAPY GZHZZZZ 09/09/15 GROUP PSYCHOTHERAPY 52869 08/25/15 GROUP PSYCHOTHERAPY GZHZZZZ 08/25/15 Internal Medicine Assmt/Plan - Assessment Assessment: 1.CLAUDIO. 2.DJD. 3.PSYCHOSIS - Plan Plan: CONTINUE ON CURRENT MEDICATION AND DIET. Nutritional Asmnt/Malnutr-PDOC - Dietary Evaluation Malnutrition Findings (Please click <Entered> for more info): Nutritional Asmnt/Malnutrition Start: 09/02/18 09: 03 Text: Status: Complete Freq: Protocol: Document 09/02/18 09:03 KHRIS (Rec: 09/02/18 09:20 KHRIS VALDES- FNS1) Nutritional Asmnt/Malnutrition Patient General Information Nutritional Screening Low Risk Diagnosis Psychosis Pertinent Medical Hx/Surgical Hx chronic back pain, degenerative joint disease, gastroesophageal reflux, schizophrenia. Subjective Information Per nursing notes, sexually inappropriate, withdrawn. Patient in room with the door closed. Not appropriate for dietary education Current Diet Order/ Nutrition Support Regular Patient / S.O Not Indicated Pertinent Medications Maalox, MOM, Theragran Pertinent Labs WNL Nutritional Hx/Data Height 1.8 m Height (Calculated Centimeters) 180.3 Current Weight (lbs) 89.811 kg Weight (Calculated Kilograms) 89.8 Weight (Calculated Grams) 69408.3 [place] Body Weight 172 % [place] Body Weight 115 Body Mass Index (BMI) 27.6 Recent Weight Change No Weight Status Overweight GI Symptoms GI Symptoms None Last BM 08/31 x 1 Difficult in: None Food Allergies No Cultural/Ethnic/Caodaism Belief none indicated Usual diet at home unknown Skin Integrity/Comment: Ezekiel 17, intact Current %PO Good (75-100%) Estimated Nutritional Goals BEE in Kcals: Using Current wt Calories/Kcals/Kg CBW 89.8kg 22-27 kcal/kg Kcals Calculated 1856-3516 kcal/day Protein: Using Current wt Protein g/k.8-1 gm/kg Protein Calculated 70-90 gm/day Fluid: ml 3602-1853 ml/day Nutritional Problem No current Nutrition Prob Problem No nutrition diagnosis at this time Intervention/Recommendation Comments Continue regular diet as tolerated by patient. Expected Outcomes/Goals Expected Outcomes/Goals Oral intake >75% of meals, weight stable, nutrition related labs WNL F/U LR 09/09
[2018-09-03] MEDS: OLANZapine 10 mg Oral Disintegrating Tab PO SCH (21:24)
--- NOTE | 2018-09-03 23:59 | Progress Notes ---
DATE: 09/03/2018 SUBJECTIVE: The patient was resting in bed, alert, calm and cooperative. The patient appeared to be somewhat guarded today. The patient did not make much sense today. The patient reported that he is eating and sleeping okay. The patient talks about having his picture in the back of a book like he mentioned it a couple of days ago. 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 OBJECTIVE: The patient appeared to be more delusional, more guarded. Staff reported that the patient had refused to take his Zyprexa and has been more delusional today. ASSESSMENT: The patient seems to be more guarded and more psychotic. The patient has been noncompliant with his medications for the last 3 days. PLAN: We will give the patient a stat dose of Zyprexa 10 mg IM X1 and increase his Zyprexa to 10 mg p.o. at bedtime. We will monitor the patient's response to the increased Zyprexa. JOB# [id number] FARZANEH
[2018-09-04] MEDS: Multivitamin Tab PO SCH (08:41)
--- NOTE | 2018-09-04 20:09 | Internal Medicine Prog Note ---
Internal Medicine Subjective - Subjective Service Date: 09/04/18 Patient seen and examined:: without staff (HE FEELS WELL) Patient is:: awake, verbal, in bed, talking Per staff patient has:: no adverse event Internal Medicine Objective - Results Result Diagrams: 08/29/18 06:00 08/29/18 06:00 Recent Labs: Laboratory Last Values WBC 8.1 Th/cmm (4.8-10.8) 08/29/18 06:00 RBC 4.89 Mil/cmm (3.80-5.80) 08/29/18 06:00 Hgb 14.2 gm/dL (12-16) 08/29/18 06:00 Hct 43.9 % (41.0-60) 08/29/18 06:00 MCV 89.6 fl (80-99) 08/29/18 06:00 MCH 28.9 pg (27.0-31.0) 08/29/18 06:00 MCHC Differential 32.3 pg (28.0-36.0) 08/29/18 06:00 RDW 15.8 % (11.5-20.0) 08/29/18 06:00 Plt Count 159 Th/cmm (150-400) 08/29/18 06:00 MPV 7.8 fl 08/29/18 06:00 Add Manual Diff YES 08/29/18 06:00 Band Neutrophils % 0 % (0-10) 08/29/18 06:00 Neutrophils (Manual) 52.0 % (40-80) 08/29/18 06:00 Lymphocytes 27.9 % (20-50) 08/29/18 06:00 Monocytes 15.4 % (2-10) H 08/29/18 06:00 Eosinophils 4.3 % (0-5) 08/29/18 06:00 Basophils 0.4 % (0-3) 08/29/18 06:00 Sodium 139 mEq/L (136-145) 08/29/18 06:00 Potassium 3.8 mEq/L (3.5-5.1) 08/29/18 06:00 Chloride 104 mEq/L (98-107) 08/29/18 06:00 Carbon Dioxide 25.7 mEq/L (21.0-31.0) 08/29/18 06:00 Anion Gap 13.1 (7.0-16.0) 08/29/18 06:00 BUN 12 mg/dL (7-25) 08/29/18 06:00 Creatinine 0.7 mg/dL (0.7-1.3) 08/29/18 06:00 Est GFR ( Amer) > 60.0 ml/min (>90) 08/29/18 06:00 Est GFR (Non-Af Amer) > 60.0 ml/min 08/29/18 06:00 BUN/Creatinine Ratio 17.1 08/29/18 06:00 Glucose 100 mg/dL (70-105) 08/29/18 06:00 POC Glucose 93 MG/DL (70 - 105) 08/29/18 06:18 Calcium 9.0 mg/dL (8.6-10.3) 08/29/18 06:00 Triglycerides 65 mg/dL (<150) 08/29/18 06:00 Cholesterol 132 mg/dL (<200) 08/29/18 06:00 LDL Cholesterol Direct 78 mg/dL (75-193) 08/29/18 06:00 HDL Cholesterol 36 mg/dL (23-92) 08/29/18 06:00 TSH 1.94 uIU/ml (0.34-5.60) 08/29/18 06:00 Urine Source CLEAN C 09/03/18 14:00 Urine Color STRAW 09/03/18 14:00 Urine Clarity CLEAR (CLEAR) 09/03/18 14:00 Urine pH 6.5 (4.6 - 8.0) 09/03/18 14:00 Ur Specific [place] 1.010 (1.005-1.030) 09/03/18 14:00 Urine Protein NEGATIVE mg/dL (NEGATIVE) 09/03/18 14:00 Urine Glucose (UA) NEGATIVE mg/dL (NEGATIVE) 09/03/18 14:00 Urine Ketones NEGATIVE mg/dL (NEGATIVE) 09/03/18 14:00 Urine Blood NEGATIVE (NEGATIVE) 09/03/18 14:00 Urine Nitrate NEGATIVE (NEGATIVE) 09/03/18 14:00 Urine Bilirubin NEGATIVE (NEGATIVE) 09/03/18 14:00 Urine Urobilinogen 0.2 E.U./dL (0.2 - 1.0) 09/03/18 14:00 Ur Leukocyte Esterase NEGATIVE (NEGATIVE) 09/03/18 14:00 Valproic Acid < 10.0 ug/mL (50.0-100.0) L 08/29/18 06:00 - Physical Exam Vitals and I&O: Vital Signs Temp 97.6 F 09/04/18 14:34 Pulse 79 09/04/18 14:34 Resp 18 09/04/18 14:34 BP 125/77 09/04/18 14:34 Pulse Ox 96 09/04/18 14:34 Intake & Output 09/04/18 09/04/18 09/05/18 06:59 18:59 06:59 Intake Total 120 180 Balance 120 180 Intake: Oral 120 180 Other: # Voids 3 2 # Bowel Movements 1 Stool Characteristics Soft Soft Active Medications: Current Medications Acetaminophen (Tylenol) 650 mg PO Q4HR PRN PRN Reason: Mild Pain / Temp above 100 Stop: 10/28/18 00:53 Last Admin: 09/02/18 01:28 Dose: 650 mg Al Hydrox/Mg Hydrox/Simethicone (Maalox) 30 ml PO Q4HR PRN PRN Reason: GI DISTRESS Stop: 10/28/18 00:53 Benztropine Mesylate (Cogentin) 0.5 mg PO HS VIKTOR Stop: 10/29/18 20:59 Last Admin: 09/03/18 21:23 Dose: Not Given Lorazepam (Ativan) 0.5 mg PO Q6HR PRN; Protocol PRN Reason: Anxiety Stop: 09/28/18 00:53 Last Admin: 09/04/18 02:06 Dose: 0.5 mg Magnesium Hydroxide (Milk Of Magnesia) 30 ml PO HS PRN PRN Reason: Constipation Multivitamins/Vitamin C (Theragran) 1 tab PO DAILY VIKTOR Stop: 10/28/18 08:59 Last Admin: 09/04/18 08:41 Dose: 1 tab Olanzapine (Zyprexa Zydis) 10 mg PO HS VIKTOR; Protocol Stop: 11/02/18 20:59 Last Admin: 09/03/18 21:24 Dose: Not Given Temazepam (Restoril) 15 mg PO HS PRN; Protocol PRN Reason: Insomnia Stop: 10/28/18 21:23 Last Admin: 09/03/18 21:25 Dose: 15 mg General: alert HEENT: NC/AT, PERRLA, EOMI, anicteric sclerae, throat clear Neck: Supple, No JVD, No thyromegaly, +2 carotid pulse wo bruit, No LAD, + JVD Lungs: CTAB Cardiovascular: Normal S1, Normal S2, without murmur Abdomen: soft, non-tender, non-distended Extremities: clear Neurological: no change - Procedures Procedures: Procedures Procedure Code Date GROUP PSYCHOTHERAPY 28101 09/09/15 GROUP PSYCHOTHERAPY GZHZZZZ 09/09/15 GROUP PSYCHOTHERAPY 28497 08/25/15 GROUP PSYCHOTHERAPY GZHZZZZ 08/25/15 Internal Medicine Assmt/Plan - Assessment Assessment: 1.CLAUDIO. 2.DJD. 3.PSYCHOSIS - Plan Plan: CONTINUE ON CURRENT MEDICATION AND DIET. Nutritional Asmnt/Malnutr-PDOC - Dietary Evaluation Malnutrition Findings (Please click <Entered> for more info): Nutritional Asmnt/Malnutrition Start: 09/02/18 09: 03 Text: Status: Complete Freq: Protocol: Document 09/02/18 09:03 KHRIS (Rec: 09/02/18 09:20 KHRIS VALDES- FNS1) Nutritional Asmnt/Malnutrition Patient General Information Nutritional Screening Low Risk Diagnosis Psychosis Pertinent Medical Hx/Surgical Hx chronic back pain, degenerative joint disease, gastroesophageal reflux, schizophrenia. Subjective Information Per nursing notes, sexually inappropriate, withdrawn. Patient in room with the door closed. Not appropriate for dietary education Current Diet Order/ Nutrition Support Regular Patient / S.O Not Indicated Pertinent Medications Maalox, MOM, Theragran Pertinent Labs WNL Nutritional Hx/Data Height 1.8 m Height (Calculated Centimeters) 180.3 Current Weight (lbs) 89.811 kg Weight (Calculated Kilograms) 89.8 Weight (Calculated Grams) 59826.3 [place] Body Weight 172 % [place] Body Weight 115 Body Mass Index (BMI) 27.6 Recent Weight Change No Weight Status Overweight GI Symptoms GI Symptoms None Last BM 08/31 x 1 Difficult in: None Food Allergies No Cultural/Ethnic/Adventism Belief none indicated Usual diet at home unknown Skin Integrity/Comment: Ezekiel 17, intact Current %PO Good (75-100%) Estimated Nutritional Goals BEE in Kcals: Using Current wt Calories/Kcals/Kg CBW 89.8kg 22-27 kcal/kg Kcals Calculated 0875-0659 kcal/day Protein: Using Current wt Protein g/k.8-1 gm/kg Protein Calculated 70-90 gm/day Fluid: ml 2228-5557 ml/day Nutritional Problem No current Nutrition Prob Problem No nutrition diagnosis at this time Intervention/Recommendation Comments Continue regular diet as tolerated by patient. Expected Outcomes/Goals Expected Outcomes/Goals Oral intake >75% of meals, weight stable, nutrition related labs WNL F/U LR 09/09
[2018-09-04] MEDS: OLANZapine 10 mg Oral Disintegrating Tab PO SCH (21:15)
--- NOTE | 2018-09-05 03:21 | Progress Notes ---
DATE: 09/04/2018 PSYCHIATRIC PROGRESS NOTE SUBJECTIVE: Staff was spoken to. The patient is interviewed. The patient is reported to have been isolative to his room most of the time. The patient is reported to have been trying to disrobe and asking the female staff to come to the room and then closed the door behind them. The patient is very guarded when asked about this kind of behavior. The patient is getting easily irritable. Insight and judgment at this time are noted to be still impaired. The patient is currently on Zyprexa. No side effects to the medications are noted today. ASSESSMENT: The patient is still psychotic. PLAN: To continue the patient with the current medications and followup. I encouraged the patient to comply with the treatment and the patient is going to be closely monitored. JOB# [id number]
[2018-09-05] MEDS: Multivitamin Tab PO SCH (08:38)
[2018-09-05] MEDS ORDERED: Haloperidol Lactate 5 mg/mL 1mL Vial IM PRN (18:30)
--- NOTE | 2018-09-05 20:32 | Internal Medicine Prog Note ---
Internal Medicine Subjective - Subjective Service Date: 09/05/18 Patient seen and examined:: with staff Patient is:: awake, verbal, in bed, talking Per staff patient has:: no adverse event Internal Medicine Objective - Results Result Diagrams: 08/29/18 06:00 08/29/18 06:00 Recent Labs: Laboratory Last Values WBC 8.1 Th/cmm (4.8-10.8) 08/29/18 06:00 RBC 4.89 Mil/cmm (3.80-5.80) 08/29/18 06:00 Hgb 14.2 gm/dL (12-16) 08/29/18 06:00 Hct 43.9 % (41.0-60) 08/29/18 06:00 MCV 89.6 fl (80-99) 08/29/18 06:00 MCH 28.9 pg (27.0-31.0) 08/29/18 06:00 MCHC Differential 32.3 pg (28.0-36.0) 08/29/18 06:00 RDW 15.8 % (11.5-20.0) 08/29/18 06:00 Plt Count 159 Th/cmm (150-400) 08/29/18 06:00 MPV 7.8 fl 08/29/18 06:00 Add Manual Diff YES 08/29/18 06:00 Band Neutrophils % 0 % (0-10) 08/29/18 06:00 Neutrophils (Manual) 52.0 % (40-80) 08/29/18 06:00 Lymphocytes 27.9 % (20-50) 08/29/18 06:00 Monocytes 15.4 % (2-10) H 08/29/18 06:00 Eosinophils 4.3 % (0-5) 08/29/18 06:00 Basophils 0.4 % (0-3) 08/29/18 06:00 Sodium 139 mEq/L (136-145) 08/29/18 06:00 Potassium 3.8 mEq/L (3.5-5.1) 08/29/18 06:00 Chloride 104 mEq/L (98-107) 08/29/18 06:00 Carbon Dioxide 25.7 mEq/L (21.0-31.0) 08/29/18 06:00 Anion Gap 13.1 (7.0-16.0) 08/29/18 06:00 BUN 12 mg/dL (7-25) 08/29/18 06:00 Creatinine 0.7 mg/dL (0.7-1.3) 08/29/18 06:00 Est GFR ( Amer) > 60.0 ml/min (>90) 08/29/18 06:00 Est GFR (Non-Af Amer) > 60.0 ml/min 08/29/18 06:00 BUN/Creatinine Ratio 17.1 08/29/18 06:00 Glucose 100 mg/dL (70-105) 08/29/18 06:00 POC Glucose 93 MG/DL (70 - 105) 08/29/18 06:18 Calcium 9.0 mg/dL (8.6-10.3) 08/29/18 06:00 Triglycerides 65 mg/dL (<150) 08/29/18 06:00 Cholesterol 132 mg/dL (<200) 08/29/18 06:00 LDL Cholesterol Direct 78 mg/dL (75-193) 08/29/18 06:00 HDL Cholesterol 36 mg/dL (23-92) 08/29/18 06:00 TSH 1.94 uIU/ml (0.34-5.60) 08/29/18 06:00 Urine Source CLEAN C 09/03/18 14:00 Urine Color STRAW 09/03/18 14:00 Urine Clarity CLEAR (CLEAR) 09/03/18 14:00 Urine pH 6.5 (4.6 - 8.0) 09/03/18 14:00 Ur Specific [place] 1.010 (1.005-1.030) 09/03/18 14:00 Urine Protein NEGATIVE mg/dL (NEGATIVE) 09/03/18 14:00 Urine Glucose (UA) NEGATIVE mg/dL (NEGATIVE) 09/03/18 14:00 Urine Ketones NEGATIVE mg/dL (NEGATIVE) 09/03/18 14:00 Urine Blood NEGATIVE (NEGATIVE) 09/03/18 14:00 Urine Nitrate NEGATIVE (NEGATIVE) 09/03/18 14:00 Urine Bilirubin NEGATIVE (NEGATIVE) 09/03/18 14:00 Urine Urobilinogen 0.2 E.U./dL (0.2 - 1.0) 09/03/18 14:00 Ur Leukocyte Esterase NEGATIVE (NEGATIVE) 09/03/18 14:00 Valproic Acid < 10.0 ug/mL (50.0-100.0) L 08/29/18 06:00 - Physical Exam Vitals and I&O: Vital Signs Temp 98.2 F 09/05/18 20:14 Pulse 73 09/05/18 20:14 Resp 18 09/05/18 20:14 BP 105/60 09/05/18 20:14 Pulse Ox 100 09/05/18 20:14 Intake & Output 09/05/18 09/05/18 09/06/18 06:59 18:59 06:59 Intake Total 180 900 120 Balance 180 900 120 Intake: Oral 180 900 120 Other: # Voids 3 3 # Bowel Movements 0 1 Active Medications: Current Medications Acetaminophen (Tylenol) 650 mg PO Q4HR PRN PRN Reason: Mild Pain / Temp above 100 Stop: 10/28/18 00:53 Last Admin: 09/02/18 01:28 Dose: 650 mg Al Hydrox/Mg Hydrox/Simethicone (Maalox) 30 ml PO Q4HR PRN PRN Reason: GI DISTRESS Stop: 10/28/18 00:53 Benztropine Mesylate (Cogentin) 0.5 mg PO HS VIKTOR Stop: 10/29/18 20:59 Last Admin: 09/04/18 21:14 Dose: 0.5 mg Haloperidol Lactate (Haldol Concentrate 10mg/5ml Susp) 5 mg PO BID VIKTOR; Protocol Stop: 11/05/18 08:59 Haloperidol Lactate (Haldol) 5 mg IM BID PRN PRN Reason: Agitation Stop: 11/04/18 18:29 Lorazepam (Ativan) 0.5 mg PO Q6HR PRN; Protocol PRN Reason: Anxiety Stop: 09/28/18 00:53 Last Admin: 09/05/18 16:43 Dose: 0.5 mg Magnesium Hydroxide (Milk Of Magnesia) 30 ml PO HS PRN PRN Reason: Constipation Multivitamins/Vitamin C (Theragran) 1 tab PO DAILY VIKTOR Stop: 10/28/18 08:59 Last Admin: 09/05/18 08:38 Dose: 1 tab Olanzapine (Zyprexa Zydis) 10 mg PO HS VIKTOR; Protocol Stop: 11/02/18 20:59 Last Admin: 09/04/18 21:15 Dose: 10 mg Temazepam (Restoril) 15 mg PO HS PRN; Protocol PRN Reason: Insomnia Stop: 10/28/18 21:23 Last Admin: 09/04/18 21:15 Dose: 15 mg General: alert HEENT: NC/AT, PERRLA, EOMI, anicteric sclerae, throat clear Neck: Supple, No JVD, No thyromegaly, +2 carotid pulse wo bruit, No LAD, + JVD Lungs: CTAB Cardiovascular: Normal S1, Normal S2, without murmur Abdomen: soft, non-tender, non-distended Extremities: clear Neurological: no change - Procedures Procedures: Procedures Procedure Code Date GROUP PSYCHOTHERAPY 98419 09/09/15 GROUP PSYCHOTHERAPY GZHZZZZ 09/09/15 GROUP PSYCHOTHERAPY 94682 08/25/15 GROUP PSYCHOTHERAPY GZHZZZZ 08/25/15 Internal Medicine Assmt/Plan - Assessment Assessment: 1.CLAUDIO. 2.DJD. 3.PSYCHOSIS - Plan Plan: CONTINUE ON CURRENT MEDICATION AND DIET. Nutritional Asmnt/Malnutr-PDOC - Dietary Evaluation Malnutrition Findings (Please click <Entered> for more info): Nutritional Asmnt/Malnutrition Start: 09/02/18 09: 03 Text: Status: Complete Freq: Protocol: Document 09/02/18 09:03 KHRIS (Rec: 09/02/18 09:20 KHRIS VALDES- FNS1) Nutritional Asmnt/Malnutrition Patient General Information Nutritional Screening Low Risk Diagnosis Psychosis Pertinent Medical Hx/Surgical Hx chronic back pain, degenerative joint disease, gastroesophageal reflux, schizophrenia. Subjective Information Per nursing notes, sexually inappropriate, withdrawn. Patient in room with the door closed. Not appropriate for dietary education Current Diet Order/ Nutrition Support Regular Patient / S.O Not Indicated Pertinent Medications Maalox, MOM, Theragran Pertinent Labs WNL Nutritional Hx/Data Height 1.8 m Height (Calculated Centimeters) 180.3 Current Weight (lbs) 89.811 kg Weight (Calculated Kilograms) 89.8 Weight (Calculated Grams) 60648.3 [place] Body Weight 172 % [place] Body Weight 115 Body Mass Index (BMI) 27.6 Recent Weight Change No Weight Status Overweight GI Symptoms GI Symptoms None Last BM 08/31 x 1 Difficult in: None Food Allergies No Cultural/Ethnic/Zoroastrian Belief none indicated Usual diet at home unknown Skin Integrity/Comment: Ezekiel 17, intact Current %PO Good (75-100%) Estimated Nutritional Goals BEE in Kcals: Using Current wt Calories/Kcals/Kg CBW 89.8kg 22-27 kcal/kg Kcals Calculated 3758-3563 kcal/day Protein: Using Current wt Protein g/k.8-1 gm/kg Protein Calculated 70-90 gm/day Fluid: ml 9043-3143 ml/day Nutritional Problem No current Nutrition Prob Problem No nutrition diagnosis at this time Intervention/Recommendation Comments Continue regular diet as tolerated by patient. Expected Outcomes/Goals Expected Outcomes/Goals Oral intake >75% of meals, weight stable, nutrition related labs WNL F/U LR 09/09
--- NOTE | 2018-09-05 21:40 | Progress Notes ---
DATE: 09/04/2018 PSYCHOLOGY PROGRESS NOTE SUBJECTIVE: The patient is seen and is interviewed. Case is discussed with staff. The patient is in his room and is mostly verbally nonresponsive. Staff reports the patient is isolative, however, the patient has episodes of standing in his doorway and disrobing and making sexual gestures i.e., public masturbation. The patient has been asking the female staff to come into his room. OBJECTIVE: Mood is irritable. Affect is constricted. Thought process indicates perseveration on sexual fantasy and sexual gratification. The patient did not answer questions about hallucinations or delusions. The patient's behavior is generally dismissive towards the care providers and is openly sexually aggressive towards the female staff as well as the female patients on the unit. The patient is disrobing and exposing himself as well as making sexual gestures, i.e., publicly masturbating. The patient did not respond about awareness of his behavior. ASSESSMENT AND PLAN: The patient's psychosis persists. The patient's sexual perseveration and inappropriate behavior persists. There have been no changes in his behavior. We provided de-escalation and limit setting. The patient was generally unresponsive verbally to the cognitive behavioral approach. We will provide boundary defintions to reduce his impulsivity and his inappropriate sexual gestures and comments. Continued treatment will be provided, contingent upon whether the patient has the capacity to benefit from psychology services. This will be discussed with the attending psychiatrist. We will follow up in 2 days based on that assessment and contingency to provide treatment. JOB# [id number] FARZANEH
[2018-09-05] MEDS: OLANZapine 10 mg Oral Disintegrating Tab PO SCH (21:50)
--- NOTE | 2018-09-06 04:54 | Progress Notes ---
DATE: 09/05/2018 SUBJECTIVE: Staff was spoken to. The patient is interviewed. Chart is reviewed. The patient is reported to have been less agitated today and screaming and yelling has been going down with side effects to the medications are noted. The patient's coping skills at this time are noted to be improving and the patient's inappropriate sexual behavior seems to be coming under control. The patient tends to be isolative and withdrawn. ASSESSMENT: The patient's psychosis is resolving and impulsivity is coming under control. PLAN: To continue the patient with the supportive therapy. I encouraged the patient to verbalize the concerns rather than to act out. JOB# [id number]
[2018-09-06] MEDS: Haldol Oral Sol.(concentrate) 10 mg/5 mL Udc PO SCH ×2 (08:35→16:52)
[2018-09-06] MEDS: Multivitamin Tab PO SCH (08:35)
--- NOTE | 2018-09-06 15:09 | Progress Notes ---
DATE: 09/06/2018 SUBJECTIVE: Staff was spoken to. The patient is interviewed. Mood is noted to be irritable. Affect is constricted. The patient is very much sexually inappropriate and has been exposing himself and asking the female staff to get into the room and close the doors behind them. The patient has no insight into his illness. The patient is still becoming a major behavioral problem at this time. In view of this one, I have decided to continue the patient with Haldol and discontinue the Zyprexa and then start the patient with the Depakote for the mood swings and irritability and anger. ASSESSMENT: The patient is still impulsive and psychotic. PLAN: To continue the patient with the above changes in the medication and follow the patient up. JOB# [id number]
--- NOTE | 2018-09-06 22:30 | Internal Medicine Prog Note ---
Internal Medicine Subjective - Subjective Service Date: 09/06/18 Patient seen and examined:: without staff (HE FEELS GOOD,NO COMPLAIN) Patient is:: awake, verbal, in bed, talking Per staff patient has:: no adverse event Internal Medicine Objective - Results Result Diagrams: 08/29/18 06:00 08/29/18 06:00 Recent Labs: Laboratory Last Values WBC 8.1 Th/cmm (4.8-10.8) 08/29/18 06:00 RBC 4.89 Mil/cmm (3.80-5.80) 08/29/18 06:00 Hgb 14.2 gm/dL (12-16) 08/29/18 06:00 Hct 43.9 % (41.0-60) 08/29/18 06:00 MCV 89.6 fl (80-99) 08/29/18 06:00 MCH 28.9 pg (27.0-31.0) 08/29/18 06:00 MCHC Differential 32.3 pg (28.0-36.0) 08/29/18 06:00 RDW 15.8 % (11.5-20.0) 08/29/18 06:00 Plt Count 159 Th/cmm (150-400) 08/29/18 06:00 MPV 7.8 fl 08/29/18 06:00 Add Manual Diff YES 08/29/18 06:00 Band Neutrophils % 0 % (0-10) 08/29/18 06:00 Neutrophils (Manual) 52.0 % (40-80) 08/29/18 06:00 Lymphocytes 27.9 % (20-50) 08/29/18 06:00 Monocytes 15.4 % (2-10) H 08/29/18 06:00 Eosinophils 4.3 % (0-5) 08/29/18 06:00 Basophils 0.4 % (0-3) 08/29/18 06:00 Sodium 139 mEq/L (136-145) 08/29/18 06:00 Potassium 3.8 mEq/L (3.5-5.1) 08/29/18 06:00 Chloride 104 mEq/L (98-107) 08/29/18 06:00 Carbon Dioxide 25.7 mEq/L (21.0-31.0) 08/29/18 06:00 Anion Gap 13.1 (7.0-16.0) 08/29/18 06:00 BUN 12 mg/dL (7-25) 08/29/18 06:00 Creatinine 0.7 mg/dL (0.7-1.3) 08/29/18 06:00 Est GFR ( Amer) > 60.0 ml/min (>90) 08/29/18 06:00 Est GFR (Non-Af Amer) > 60.0 ml/min 08/29/18 06:00 BUN/Creatinine Ratio 17.1 08/29/18 06:00 Glucose 100 mg/dL (70-105) 08/29/18 06:00 POC Glucose 93 MG/DL (70 - 105) 08/29/18 06:18 Calcium 9.0 mg/dL (8.6-10.3) 08/29/18 06:00 Triglycerides 65 mg/dL (<150) 08/29/18 06:00 Cholesterol 132 mg/dL (<200) 08/29/18 06:00 LDL Cholesterol Direct 78 mg/dL (75-193) 08/29/18 06:00 HDL Cholesterol 36 mg/dL (23-92) 08/29/18 06:00 TSH 1.94 uIU/ml (0.34-5.60) 08/29/18 06:00 Urine Source CLEAN C 09/03/18 14:00 Urine Color STRAW 09/03/18 14:00 Urine Clarity CLEAR (CLEAR) 09/03/18 14:00 Urine pH 6.5 (4.6 - 8.0) 09/03/18 14:00 Ur Specific [place] 1.010 (1.005-1.030) 09/03/18 14:00 Urine Protein NEGATIVE mg/dL (NEGATIVE) 09/03/18 14:00 Urine Glucose (UA) NEGATIVE mg/dL (NEGATIVE) 09/03/18 14:00 Urine Ketones NEGATIVE mg/dL (NEGATIVE) 09/03/18 14:00 Urine Blood NEGATIVE (NEGATIVE) 09/03/18 14:00 Urine Nitrate NEGATIVE (NEGATIVE) 09/03/18 14:00 Urine Bilirubin NEGATIVE (NEGATIVE) 09/03/18 14:00 Urine Urobilinogen 0.2 E.U./dL (0.2 - 1.0) 09/03/18 14:00 Ur Leukocyte Esterase NEGATIVE (NEGATIVE) 09/03/18 14:00 Valproic Acid < 10.0 ug/mL (50.0-100.0) L 08/29/18 06:00 - Physical Exam Vitals and I&O: Vital Signs Temp 97.6 F 09/06/18 14:00 Pulse 75 09/06/18 14:00 Resp 20 09/06/18 14:00 BP 100/72 09/06/18 14:00 Pulse Ox 98 09/06/18 14:00 Intake & Output 09/06/18 09/06/18 09/07/18 06:59 18:59 06:59 Intake Total 120 1200 Balance 120 1200 Intake: Oral 120 1200 Other: # Voids 2 # Bowel Movements 0 1 Active Medications: Current Medications Acetaminophen (Tylenol) 650 mg PO Q4HR PRN PRN Reason: Mild Pain / Temp above 100 Stop: 10/28/18 00:53 Last Admin: 09/02/18 01:28 Dose: 650 mg Al Hydrox/Mg Hydrox/Simethicone (Maalox) 30 ml PO Q4HR PRN PRN Reason: GI DISTRESS Stop: 10/28/18 00:53 Benztropine Mesylate (Cogentin) 0.5 mg PO HS VIKTOR Stop: 10/29/18 20:59 Last Admin: 09/06/18 21:02 Dose: 0.5 mg Divalproex Sodium (Depakote Dr) 250 mg PO BID [facility]; Protocol Stop: 11/05/18 16:59 Last Admin: 09/06/18 16:52 Dose: 250 mg Haloperidol Lactate (Haldol Concentrate 10mg/5ml Susp) 5 mg PO BID VIKTOR; Protocol Stop: 11/05/18 08:59 Last Admin: 09/06/18 16:52 Dose: 5 mg Haloperidol Lactate (Haldol) 5 mg IM BID PRN PRN Reason: Agitation Stop: 11/04/18 18:29 Lorazepam (Ativan) 0.5 mg PO Q6HR PRN; Protocol PRN Reason: Anxiety Stop: 09/28/18 00:53 Last Admin: 09/06/18 21:02 Dose: 0.5 mg Magnesium Hydroxide (Milk Of Magnesia) 30 ml PO HS PRN PRN Reason: Constipation Multivitamins/Vitamin C (Theragran) 1 tab PO DAILY VIKTOR Stop: 10/28/18 08:59 Last Admin: 09/06/18 08:35 Dose: 1 tab Temazepam (Restoril) 15 mg PO HS PRN; Protocol PRN Reason: Insomnia Stop: 10/28/18 21:23 Last Admin: 09/06/18 21:03 Dose: 15 mg General: alert HEENT: NC/AT, PERRLA, EOMI, anicteric sclerae, throat clear Neck: Supple, No JVD, No thyromegaly, +2 carotid pulse wo bruit, No LAD, + JVD Lungs: CTAB Cardiovascular: Normal S1, Normal S2, without murmur Abdomen: soft, non-tender, non-distended Extremities: clear Neurological: no change - Procedures Procedures: Procedures Procedure Code Date GROUP PSYCHOTHERAPY 36958 09/09/15 GROUP PSYCHOTHERAPY GZHZZZZ 09/09/15 GROUP PSYCHOTHERAPY 20097 08/25/15 GROUP PSYCHOTHERAPY GZHZZZZ 08/25/15 Internal Medicine Assmt/Plan - Assessment Assessment: 1.CLAUDIO. 2.DJD. 3.PSYCHOSIS - Plan Plan: CONTINUE ON CURRENT MEDICATION AND DIET. Nutritional Asmnt/Malnutr-PDOC - Dietary Evaluation Malnutrition Findings (Please click <Entered> for more info): Nutritional Asmnt/Malnutrition Start: 09/02/18 09: 03 Text: Status: Complete Freq: Protocol: Document 09/02/18 09:03 KHRIS (Rec: 09/02/18 09:20 KHRIS VALDES- FNS1) Nutritional Asmnt/Malnutrition Patient General Information Nutritional Screening Low Risk Diagnosis Psychosis Pertinent Medical Hx/Surgical Hx chronic back pain, degenerative joint disease, gastroesophageal reflux, schizophrenia. Subjective Information Per nursing notes, sexually inappropriate, withdrawn. Patient in room with the door closed. Not appropriate for dietary education Current Diet Order/ Nutrition Support Regular Patient / S.O Not Indicated Pertinent Medications Maalox, MOM, Theragran Pertinent Labs WNL Nutritional Hx/Data Height 1.8 m Height (Calculated Centimeters) 180.3 Current Weight (lbs) 89.811 kg Weight (Calculated Kilograms) 89.8 Weight (Calculated Grams) 14518.3 [place] Body Weight 172 % [place] Body Weight 115 Body Mass Index (BMI) 27.6 Recent Weight Change No Weight Status Overweight GI Symptoms GI Symptoms None Last BM 08/31 x 1 Difficult in: None Food Allergies No Cultural/Ethnic/Anabaptism Belief none indicated Usual diet at home unknown Skin Integrity/Comment: Ezekiel 17, intact Current %PO Good (75-100%) Estimated Nutritional Goals BEE in Kcals: Using Current wt Calories/Kcals/Kg CBW 89.8kg 22-27 kcal/kg Kcals Calculated 0247-1562 kcal/day Protein: Using Current wt Protein g/k.8-1 gm/kg Protein Calculated 70-90 gm/day Fluid: ml 9795-5600 ml/day Nutritional Problem No current Nutrition Prob Problem No nutrition diagnosis at this time Intervention/Recommendation Comments Continue regular diet as tolerated by patient. Expected Outcomes/Goals Expected Outcomes/Goals Oral intake >75% of meals, weight stable, nutrition related labs WNL F/U LR 09/09
[2018-09-07] MEDS: Haldol Oral Sol.(concentrate) 10 mg/5 mL Udc PO SCH ×2 (08:56→17:19)
[2018-09-07] MEDS: Multivitamin Tab PO SCH (08:56)
--- NOTE | 2018-09-07 11:19 | Progress Notes ---
DATE: 09/07/2018 SUBJECTIVE: Staff was spoken to. The patient is interviewed. Mood is noted to be irritable. Affect is constricted. Impulse control seemed to be poor. The patient has been still very inappropriate and has been sexually preoccupied. The patient's medications have been changed yesterday to Haldol and then I have added the Depakote with these medications, the patient is being closely monitored. The patient is going on a tangent. Insight and judgment are noted to be still impaired. The patient is currently on 10 mg twice daily of Zyprexa and 250 mg twice a day of the Depakote. ASSESSMENT: The patient is still impulsive and aggressive. PLAN: To continue the patient with the current medications and follow. JOB# [id number]
--- NOTE | 2018-09-07 18:23 | Internal Medicine Prog Note ---
Internal Medicine Subjective - Subjective Patient is:: awake, verbal, in bed, talking Per staff patient has:: no adverse event Internal Medicine Objective - Results Result Diagrams: 08/29/18 06:00 08/29/18 06:00 Recent Labs: Laboratory Last Values WBC 8.1 Th/cmm (4.8-10.8) 08/29/18 06:00 RBC 4.89 Mil/cmm (3.80-5.80) 08/29/18 06:00 Hgb 14.2 gm/dL (12-16) 08/29/18 06:00 Hct 43.9 % (41.0-60) 08/29/18 06:00 MCV 89.6 fl (80-99) 08/29/18 06:00 MCH 28.9 pg (27.0-31.0) 08/29/18 06:00 MCHC Differential 32.3 pg (28.0-36.0) 08/29/18 06:00 RDW 15.8 % (11.5-20.0) 08/29/18 06:00 Plt Count 159 Th/cmm (150-400) 08/29/18 06:00 MPV 7.8 fl 08/29/18 06:00 Add Manual Diff YES 08/29/18 06:00 Band Neutrophils % 0 % (0-10) 08/29/18 06:00 Neutrophils (Manual) 52.0 % (40-80) 08/29/18 06:00 Lymphocytes 27.9 % (20-50) 08/29/18 06:00 Monocytes 15.4 % (2-10) H 08/29/18 06:00 Eosinophils 4.3 % (0-5) 08/29/18 06:00 Basophils 0.4 % (0-3) 08/29/18 06:00 Sodium 139 mEq/L (136-145) 08/29/18 06:00 Potassium 3.8 mEq/L (3.5-5.1) 08/29/18 06:00 Chloride 104 mEq/L (98-107) 08/29/18 06:00 Carbon Dioxide 25.7 mEq/L (21.0-31.0) 08/29/18 06:00 Anion Gap 13.1 (7.0-16.0) 08/29/18 06:00 BUN 12 mg/dL (7-25) 08/29/18 06:00 Creatinine 0.7 mg/dL (0.7-1.3) 08/29/18 06:00 Est GFR ( Amer) > 60.0 ml/min (>90) 08/29/18 06:00 Est GFR (Non-Af Amer) > 60.0 ml/min 08/29/18 06:00 BUN/Creatinine Ratio 17.1 08/29/18 06:00 Glucose 100 mg/dL (70-105) 08/29/18 06:00 POC Glucose 93 MG/DL (70 - 105) 08/29/18 06:18 Calcium 9.0 mg/dL (8.6-10.3) 08/29/18 06:00 Triglycerides 65 mg/dL (<150) 08/29/18 06:00 Cholesterol 132 mg/dL (<200) 08/29/18 06:00 LDL Cholesterol Direct 78 mg/dL (75-193) 08/29/18 06:00 HDL Cholesterol 36 mg/dL (23-92) 08/29/18 06:00 TSH 1.94 uIU/ml (0.34-5.60) 08/29/18 06:00 Urine Source CLEAN C 09/03/18 14:00 Urine Color STRAW 09/03/18 14:00 Urine Clarity CLEAR (CLEAR) 09/03/18 14:00 Urine pH 6.5 (4.6 - 8.0) 09/03/18 14:00 Ur Specific [place] 1.010 (1.005-1.030) 09/03/18 14:00 Urine Protein NEGATIVE mg/dL (NEGATIVE) 09/03/18 14:00 Urine Glucose (UA) NEGATIVE mg/dL (NEGATIVE) 09/03/18 14:00 Urine Ketones NEGATIVE mg/dL (NEGATIVE) 09/03/18 14:00 Urine Blood NEGATIVE (NEGATIVE) 09/03/18 14:00 Urine Nitrate NEGATIVE (NEGATIVE) 09/03/18 14:00 Urine Bilirubin NEGATIVE (NEGATIVE) 09/03/18 14:00 Urine Urobilinogen 0.2 E.U./dL (0.2 - 1.0) 09/03/18 14:00 Ur Leukocyte Esterase NEGATIVE (NEGATIVE) 09/03/18 14:00 Valproic Acid < 10.0 ug/mL (50.0-100.0) L 08/29/18 06:00 - Physical Exam Vitals and I&O: Vital Signs Temp 97.6 F 09/06/18 14:00 Pulse 75 09/06/18 14:00 Resp 20 09/06/18 14:00 BP 100/72 09/06/18 14:00 Pulse Ox 98 09/06/18 14:00 Intake & Output 09/06/18 09/07/18 09/07/18 18:59 06:59 18:59 Intake Total 1200 240 Balance 1200 240 Intake: Oral 1200 240 Other: # Voids 2 # Bowel Movements 1 Active Medications: Current Medications Acetaminophen (Tylenol) 650 mg PO Q4HR PRN PRN Reason: Mild Pain / Temp above 100 Stop: 10/28/18 00:53 Last Admin: 09/02/18 01:28 Dose: 650 mg Al Hydrox/Mg Hydrox/Simethicone (Maalox) 30 ml PO Q4HR PRN PRN Reason: GI DISTRESS Stop: 10/28/18 00:53 Benztropine Mesylate (Cogentin) 0.5 mg PO HS VIKTOR Stop: 10/29/18 20:59 Last Admin: 09/06/18 21:02 Dose: 0.5 mg Divalproex Sodium (Depakote Dr) 250 mg PO BID VIKTOR; Protocol Stop: 11/05/18 16:59 Last Admin: 09/07/18 17:19 Dose: 250 mg Haloperidol Lactate (Haldol Concentrate 10mg/5ml Susp) 5 mg PO BID VIKTOR; Protocol Stop: 11/05/18 08:59 Last Admin: 09/07/18 17:19 Dose: 5 mg Haloperidol Lactate (Haldol) 5 mg IM BID PRN PRN Reason: Agitation Stop: 11/04/18 18:29 Lorazepam (Ativan) 0.5 mg PO Q6HR PRN; Protocol PRN Reason: Anxiety Stop: 09/28/18 00:53 Last Admin: 09/07/18 17:18 Dose: 0.5 mg Magnesium Hydroxide (Milk Of Magnesia) 30 ml PO HS PRN PRN Reason: Constipation Multivitamins/Vitamin C (Theragran) 1 tab PO DAILY VIKTOR Stop: 10/28/18 08:59 Last Admin: 09/07/18 08:56 Dose: 1 tab Temazepam (Restoril) 15 mg PO HS PRN; Protocol PRN Reason: Insomnia Stop: 10/28/18 21:23 Last Admin: 09/06/18 21:03 Dose: 15 mg General: alert HEENT: NC/AT, PERRLA, EOMI, anicteric sclerae, throat clear Neck: Supple, No JVD, No thyromegaly, +2 carotid pulse wo bruit, No LAD, + JVD Lungs: CTAB Cardiovascular: Normal S1, Normal S2, without murmur Abdomen: soft, non-tender, non-distended Extremities: clear Neurological: no change - Procedures Procedures: Procedures Procedure Code Date GROUP PSYCHOTHERAPY 16390 09/09/15 GROUP PSYCHOTHERAPY GZHZZZZ 09/09/15 GROUP PSYCHOTHERAPY 14154 08/25/15 GROUP PSYCHOTHERAPY GZHZZZZ 08/25/15 Internal Medicine Assmt/Plan - Assessment Assessment: 1.CLAUDIO. 2.DJD. 3.PSYCHOSIS - Plan Plan: CONTINUE ON CURRENT MEDICATION AND DIET. Nutritional Asmnt/Malnutr-PDOC - Dietary Evaluation Malnutrition Findings (Please click <Entered> for more info): Nutritional Asmnt/Malnutrition Start: 09/02/18 09: 03 Text: Status: Complete Freq: Protocol: Document 09/02/18 09:03 KHRIS (Rec: 09/02/18 09:20 KHRIS VALDES- FNS1) Nutritional Asmnt/Malnutrition Patient General Information Nutritional Screening Low Risk Diagnosis Psychosis Pertinent Medical Hx/Surgical Hx chronic back pain, degenerative joint disease, gastroesophageal reflux, schizophrenia. Subjective Information Per nursing notes, sexually inappropriate, withdrawn. Patient in room with the door closed. Not appropriate for dietary education Current Diet Order/ Nutrition Support Regular Patient / S.O Not Indicated Pertinent Medications Maalox, MOM, Theragran Pertinent Labs WNL Nutritional Hx/Data Height 1.8 m Height (Calculated Centimeters) 180.3 Current Weight (lbs) 89.811 kg Weight (Calculated Kilograms) 89.8 Weight (Calculated Grams) 08744.3 [place] Body Weight 172 % [place] Body Weight 115 Body Mass Index (BMI) 27.6 Recent Weight Change No Weight Status Overweight GI Symptoms GI Symptoms None Last BM 08/31 x 1 Difficult in: None Food Allergies No Cultural/Ethnic/Episcopal Belief none indicated Usual diet at home unknown Skin Integrity/Comment: Ezekiel 17, intact Current %PO Good (75-100%) Estimated Nutritional Goals BEE in Kcals: Using Current wt Calories/Kcals/Kg CBW 89.8kg 22-27 kcal/kg Kcals Calculated 2041-7446 kcal/day Protein: Using Current wt Protein g/k.8-1 gm/kg Protein Calculated 70-90 gm/day Fluid: ml 5541-3170 ml/day Nutritional Problem No current Nutrition Prob Problem No nutrition diagnosis at this time Intervention/Recommendation Comments Continue regular diet as tolerated by patient. Expected Outcomes/Goals Expected Outcomes/Goals Oral intake >75% of meals, weight stable, nutrition related labs WNL F/U LR 09/09
[2018-09-07] MEDS ORDERED: Haloperidol Lactate 5 mg/mL 1mL Vial IM ONE ×2 (21:12)
[2018-09-08] MEDS: Multivitamin Tab PO SCH ×2 (08:19→08:33)
[2018-09-08] MEDS: Haldol Oral Sol.(concentrate) 10 mg/5 mL Udc PO SCH ×2 (08:19→08:32)
--- NOTE | 2018-09-08 11:51 | Internal Medicine Prog Note ---
Internal Medicine Subjective - Subjective Service Date: 09/08/18 Patient seen and examined:: without staff (HE FEELS BETTER) Patient is:: awake, verbal, in bed, talking Per staff patient has:: no adverse event Internal Medicine Objective - Results Result Diagrams: 08/29/18 06:00 08/29/18 06:00 Recent Labs: Laboratory Last Values WBC 8.1 Th/cmm (4.8-10.8) 08/29/18 06:00 RBC 4.89 Mil/cmm (3.80-5.80) 08/29/18 06:00 Hgb 14.2 gm/dL (12-16) 08/29/18 06:00 Hct 43.9 % (41.0-60) 08/29/18 06:00 MCV 89.6 fl (80-99) 08/29/18 06:00 MCH 28.9 pg (27.0-31.0) 08/29/18 06:00 MCHC Differential 32.3 pg (28.0-36.0) 08/29/18 06:00 RDW 15.8 % (11.5-20.0) 08/29/18 06:00 Plt Count 159 Th/cmm (150-400) 08/29/18 06:00 MPV 7.8 fl 08/29/18 06:00 Add Manual Diff YES 08/29/18 06:00 Band Neutrophils % 0 % (0-10) 08/29/18 06:00 Neutrophils (Manual) 52.0 % (40-80) 08/29/18 06:00 Lymphocytes 27.9 % (20-50) 08/29/18 06:00 Monocytes 15.4 % (2-10) H 08/29/18 06:00 Eosinophils 4.3 % (0-5) 08/29/18 06:00 Basophils 0.4 % (0-3) 08/29/18 06:00 Sodium 139 mEq/L (136-145) 08/29/18 06:00 Potassium 3.8 mEq/L (3.5-5.1) 08/29/18 06:00 Chloride 104 mEq/L (98-107) 08/29/18 06:00 Carbon Dioxide 25.7 mEq/L (21.0-31.0) 08/29/18 06:00 Anion Gap 13.1 (7.0-16.0) 08/29/18 06:00 BUN 12 mg/dL (7-25) 08/29/18 06:00 Creatinine 0.7 mg/dL (0.7-1.3) 08/29/18 06:00 Est GFR ( Amer) > 60.0 ml/min (>90) 08/29/18 06:00 Est GFR (Non-Af Amer) > 60.0 ml/min 08/29/18 06:00 BUN/Creatinine Ratio 17.1 08/29/18 06:00 Glucose 100 mg/dL (70-105) 08/29/18 06:00 POC Glucose 93 MG/DL (70 - 105) 08/29/18 06:18 Calcium 9.0 mg/dL (8.6-10.3) 08/29/18 06:00 Triglycerides 65 mg/dL (<150) 08/29/18 06:00 Cholesterol 132 mg/dL (<200) 08/29/18 06:00 LDL Cholesterol Direct 78 mg/dL (75-193) 08/29/18 06:00 HDL Cholesterol 36 mg/dL (23-92) 08/29/18 06:00 TSH 1.94 uIU/ml (0.34-5.60) 08/29/18 06:00 Urine Source CLEAN C 09/03/18 14:00 Urine Color STRAW 09/03/18 14:00 Urine Clarity CLEAR (CLEAR) 09/03/18 14:00 Urine pH 6.5 (4.6 - 8.0) 09/03/18 14:00 Ur Specific [place] 1.010 (1.005-1.030) 09/03/18 14:00 Urine Protein NEGATIVE mg/dL (NEGATIVE) 09/03/18 14:00 Urine Glucose (UA) NEGATIVE mg/dL (NEGATIVE) 09/03/18 14:00 Urine Ketones NEGATIVE mg/dL (NEGATIVE) 09/03/18 14:00 Urine Blood NEGATIVE (NEGATIVE) 09/03/18 14:00 Urine Nitrate NEGATIVE (NEGATIVE) 09/03/18 14:00 Urine Bilirubin NEGATIVE (NEGATIVE) 09/03/18 14:00 Urine Urobilinogen 0.2 E.U./dL (0.2 - 1.0) 09/03/18 14:00 Ur Leukocyte Esterase NEGATIVE (NEGATIVE) 09/03/18 14:00 Valproic Acid < 10.0 ug/mL (50.0-100.0) L 08/29/18 06:00 - Physical Exam Vitals and I&O: Vital Signs Temp 97 F 09/07/18 20:00 Pulse 71 09/07/18 20:00 Resp 19 09/07/18 20:00 BP 107/63 09/07/18 20:00 Pulse Ox 82 09/07/18 20:00 Intake & Output 09/07/18 09/08/18 09/08/18 18:59 06:59 18:59 Intake Total 1000 520 Balance 1000 520 Intake: Oral 1000 120 Other 400 Other: # Voids 4 1 # Bowel Movements 1 Active Medications: Current Medications Acetaminophen (Tylenol) 650 mg PO Q4HR PRN PRN Reason: Mild Pain / Temp above 100 Stop: 10/28/18 00:53 Last Admin: 09/02/18 01:28 Dose: 650 mg Al Hydrox/Mg Hydrox/Simethicone (Maalox) 30 ml PO Q4HR PRN PRN Reason: GI DISTRESS Stop: 10/28/18 00:53 Benztropine Mesylate (Cogentin) 0.5 mg PO HS VIKTOR Stop: 10/29/18 20:59 Last Admin: 09/07/18 20:11 Dose: 0.5 mg Divalproex Sodium (Depakote Dr) 250 mg PO BID [facility]; Protocol Stop: 11/05/18 16:59 Last Admin: 09/08/18 08:32 Dose: Not Given Haloperidol Lactate (Haldol Concentrate 10mg/5ml Susp) 5 mg PO BID VIKTOR; Protocol Stop: 11/05/18 08:59 Last Admin: 09/08/18 08:32 Dose: Not Given Haloperidol Lactate (Haldol) 5 mg IM BID PRN PRN Reason: Agitation Stop: 11/04/18 18:29 Lorazepam (Ativan) 0.5 mg PO Q6HR PRN; Protocol PRN Reason: Anxiety Stop: 09/28/18 00:53 Last Admin: 09/07/18 17:18 Dose: 0.5 mg Magnesium Hydroxide (Milk Of Magnesia) 30 ml PO HS PRN PRN Reason: Constipation Multivitamins/Vitamin C (Theragran) 1 tab PO DAILY VIKTOR Stop: 10/28/18 08:59 Last Admin: 09/08/18 08:33 Dose: Not Given Temazepam (Restoril) 15 mg PO HS PRN; Protocol PRN Reason: Insomnia Stop: 10/28/18 21:23 Last Admin: 09/06/18 21:03 Dose: 15 mg General: alert HEENT: NC/AT, PERRLA, EOMI, anicteric sclerae, throat clear Neck: Supple, No JVD, No thyromegaly, +2 carotid pulse wo bruit, No LAD, + JVD Lungs: CTAB Cardiovascular: Normal S1, Normal S2, without murmur Abdomen: soft, non-tender, non-distended Extremities: clear Neurological: no change - Procedures Procedures: Procedures Procedure Code Date GROUP PSYCHOTHERAPY 95660 09/09/15 GROUP PSYCHOTHERAPY GZHZZZZ 09/09/15 GROUP PSYCHOTHERAPY 03629 08/25/15 GROUP PSYCHOTHERAPY GZHZZZZ 08/25/15 Internal Medicine Assmt/Plan - Assessment Assessment: 1.CLAUDIO. 2.DJD. 3.PSYCHOSIS - Plan Plan: CONTINUE ON CURRENT MEDICATION AND DIET. Nutritional Asmnt/Malnutr-PDOC - Dietary Evaluation Malnutrition Findings (Please click <Entered> for more info): Nutritional Asmnt/Malnutrition Start: 09/02/18 09: 03 Text: Status: Complete Freq: Protocol: Document 09/02/18 09:03 KHRIS (Rec: 09/02/18 09:20 KHRIS VALDES- FNS1) Nutritional Asmnt/Malnutrition Patient General Information Nutritional Screening Low Risk Diagnosis Psychosis Pertinent Medical Hx/Surgical Hx chronic back pain, degenerative joint disease, gastroesophageal reflux, schizophrenia. Subjective Information Per nursing notes, sexually inappropriate, withdrawn. Patient in room with the door closed. Not appropriate for dietary education Current Diet Order/ Nutrition Support Regular Patient / S.O Not Indicated Pertinent Medications Maalox, MOM, Theragran Pertinent Labs WNL Nutritional Hx/Data Height 1.8 m Height (Calculated Centimeters) 180.3 Current Weight (lbs) 89.811 kg Weight (Calculated Kilograms) 89.8 Weight (Calculated Grams) 12913.3 [place] Body Weight 172 % [place] Body Weight 115 Body Mass Index (BMI) 27.6 Recent Weight Change No Weight Status Overweight GI Symptoms GI Symptoms None Last BM 08/31 x 1 Difficult in: None Food Allergies No Cultural/Ethnic/Christian Belief none indicated Usual diet at home unknown Skin Integrity/Comment: Ezekiel 17, intact Current %PO Good (75-100%) Estimated Nutritional Goals BEE in Kcals: Using Current wt Calories/Kcals/Kg CBW 89.8kg 22-27 kcal/kg Kcals Calculated 5821-2917 kcal/day Protein: Using Current wt Protein g/k.8-1 gm/kg Protein Calculated 70-90 gm/day Fluid: ml 6064-2073 ml/day Nutritional Problem No current Nutrition Prob Problem No nutrition diagnosis at this time Intervention/Recommendation Comments Continue regular diet as tolerated by patient. Expected Outcomes/Goals Expected Outcomes/Goals Oral intake >75% of meals, weight stable, nutrition related labs WNL F/U LR 09/09
--- NOTE | 2018-09-08 21:20 | Progress Notes ---
DATE: 09/08/2018 SUBJECTIVE: Staff was spoken to. The patient is interviewed. Mood is noted to be irritable. Affect is constricted. Insight and judgment at this time are noted to be still impaired. Impulse control is noted to be poor. Coping skills are also noted to be poor. The patient is sexually preoccupied. The patient has been isolative and withdrawn, but whenever the female is passing by, the patient has been making some sexual comments and behavior is being closely monitored. The patient has been reluctant to comply with the medication because the patient is getting agitated. The patient has been given a dose of the Haldol and that helped the patient to calm down. ASSESSMENT: The patient is still psychotic. PLAN: To continue the patient with the supportive therapy, encouraged the patient to verbalize the concerns rather than to act out. JOB# [id number]
[2018-09-08] MEDS ORDERED: Haloperidol Lactate 5 mg/mL 1mL Vial IM ONE (23:06)
[2018-09-09] MEDS: Haldol Oral Sol.(concentrate) 10 mg/5 mL Udc PO SCH ×2 (08:36→17:10)
[2018-09-09] MEDS: Multivitamin Tab PO SCH (08:36)
--- NOTE | 2018-09-09 14:14 | Progress Notes ---
DATE: 09/09/2018 SUBJECTIVE: Staff was spoken to. The patient is interviewed. Mood is noted to be irritable. Affect is constricted. The patient is still having acute mood swings. Insight and judgment are noted to be very much impaired. The patient is still sexually preoccupied. No side effects to the medications are noted. In view of the impulsivity and sexual preoccupation, it is decided to increase the dose on the Depakote, which is going to be made 500 mg twice a day and the patient is going to be followed up with the supportive therapy. The patient is not ready to be discharged to a lower level of care because he cannot continue displaying this kind of inappropriate behavior in the community. [facility]# [id number]
--- NOTE | 2018-09-09 19:11 | General Progress Note ---
Subjective - Review of Systems Service Date: 09/09/18 Subjective: resting comfortably no distress Objective - Results Result Diagrams: 08/29/18 06:00 08/29/18 06:00 Recent Labs: Laboratory Last Values WBC 8.1 Th/cmm (4.8-10.8) 08/29/18 06:00 RBC 4.89 Mil/cmm (3.80-5.80) 08/29/18 06:00 Hgb 14.2 gm/dL (12-16) 08/29/18 06:00 Hct 43.9 % (41.0-60) 08/29/18 06:00 MCV 89.6 fl (80-99) 08/29/18 06:00 MCH 28.9 pg (27.0-31.0) 08/29/18 06:00 MCHC Differential 32.3 pg (28.0-36.0) 08/29/18 06:00 RDW 15.8 % (11.5-20.0) 08/29/18 06:00 Plt Count 159 Th/cmm (150-400) 08/29/18 06:00 MPV 7.8 fl 08/29/18 06:00 Add Manual Diff YES 08/29/18 06:00 Band Neutrophils % 0 % (0-10) 08/29/18 06:00 Neutrophils (Manual) 52.0 % (40-80) 08/29/18 06:00 Lymphocytes 27.9 % (20-50) 08/29/18 06:00 Monocytes 15.4 % (2-10) H 08/29/18 06:00 Eosinophils 4.3 % (0-5) 08/29/18 06:00 Basophils 0.4 % (0-3) 08/29/18 06:00 Sodium 139 mEq/L (136-145) 08/29/18 06:00 Potassium 3.8 mEq/L (3.5-5.1) 08/29/18 06:00 Chloride 104 mEq/L (98-107) 08/29/18 06:00 Carbon Dioxide 25.7 mEq/L (21.0-31.0) 08/29/18 06:00 Anion Gap 13.1 (7.0-16.0) 08/29/18 06:00 BUN 12 mg/dL (7-25) 08/29/18 06:00 Creatinine 0.7 mg/dL (0.7-1.3) 08/29/18 06:00 Est GFR ( Amer) > 60.0 ml/min (>90) 08/29/18 06:00 Est GFR (Non-Af Amer) > 60.0 ml/min 08/29/18 06:00 BUN/Creatinine Ratio 17.1 08/29/18 06:00 Glucose 100 mg/dL (70-105) 08/29/18 06:00 POC Glucose 93 MG/DL (70 - 105) 08/29/18 06:18 Calcium 9.0 mg/dL (8.6-10.3) 08/29/18 06:00 Triglycerides 65 mg/dL (<150) 08/29/18 06:00 Cholesterol 132 mg/dL (<200) 08/29/18 06:00 LDL Cholesterol Direct 78 mg/dL (75-193) 08/29/18 06:00 HDL Cholesterol 36 mg/dL (23-92) 08/29/18 06:00 TSH 1.94 uIU/ml (0.34-5.60) 08/29/18 06:00 Urine Source CLEAN C 09/03/18 14:00 Urine Color STRAW 09/03/18 14:00 Urine Clarity CLEAR (CLEAR) 09/03/18 14:00 Urine pH 6.5 (4.6 - 8.0) 09/03/18 14:00 Ur Specific [place] 1.010 (1.005-1.030) 09/03/18 14:00 Urine Protein NEGATIVE mg/dL (NEGATIVE) 09/03/18 14:00 Urine Glucose (UA) NEGATIVE mg/dL (NEGATIVE) 09/03/18 14:00 Urine Ketones NEGATIVE mg/dL (NEGATIVE) 09/03/18 14:00 Urine Blood NEGATIVE (NEGATIVE) 09/03/18 14:00 Urine Nitrate NEGATIVE (NEGATIVE) 09/03/18 14:00 Urine Bilirubin NEGATIVE (NEGATIVE) 09/03/18 14:00 Urine Urobilinogen 0.2 E.U./dL (0.2 - 1.0) 09/03/18 14:00 Ur Leukocyte Esterase NEGATIVE (NEGATIVE) 09/03/18 14:00 Valproic Acid < 10.0 ug/mL (50.0-100.0) L 08/29/18 06:00 - Physical Exam Vitals and I&O: Vital Signs Temp 98.1 F 09/09/18 14:00 Pulse 71 09/09/18 14:00 Resp 20 09/09/18 14:00 BP 107/65 09/09/18 14:00 Pulse Ox 98 09/09/18 14:00 Intake & Output 09/09/18 09/09/18 09/10/18 06:59 18:59 06:59 Intake Total 360 1400 Output Total 240 Balance 120 1400 Intake: Oral 360 1400 Output: Urine 240 Stool 0 Other: # Voids 3 # Bowel Movements 0 Active Medications: Current Medications Acetaminophen (Tylenol) 650 mg PO Q4HR PRN PRN Reason: Mild Pain / Temp above 100 Stop: 10/28/18 00:53 Last Admin: 09/02/18 01:28 Dose: 650 mg Al Hydrox/Mg Hydrox/Simethicone (Maalox) 30 ml PO Q4HR PRN PRN Reason: GI DISTRESS Stop: 10/28/18 00:53 Benztropine Mesylate (Cogentin) 0.5 mg PO HS VIKTOR Stop: 10/29/18 20:59 Last Admin: 09/08/18 20:33 Dose: 0.5 mg Divalproex Sodium (Depakote Dr) 500 mg PO BID [facility]KTOR; Protocol Stop: 11/08/18 16:59 Last Admin: 09/09/18 17:10 Dose: 500 mg Haloperidol Lactate (Haldol Concentrate 10mg/5ml Susp) 5 mg PO BID VIKTOR; Protocol Stop: 11/05/18 08:59 Last Admin: 09/09/18 17:10 Dose: 5 mg Lorazepam (Ativan) 0.5 mg PO Q6HR PRN; Protocol PRN Reason: Anxiety Stop: 09/28/18 00:53 Last Admin: 09/09/18 17:10 Dose: 0.5 mg Magnesium Hydroxide (Milk Of Magnesia) 30 ml PO HS PRN PRN Reason: Constipation Multivitamins/Vitamin C (Theragran) 1 tab PO DAILY VIKTOR Stop: 10/28/18 08:59 Last Admin: 09/09/18 08:36 Dose: 1 tab Temazepam (Restoril) 15 mg PO HS PRN; Protocol PRN Reason: Insomnia Stop: 10/28/18 21:23 Last Admin: 09/06/18 21:03 Dose: 15 mg General: No acute distress HEENT: Atraumatic Neck: Supple Cardiovascular: Regular rate, Normal S1, Normal S2 Lungs: Clear to auscultation Abdomen: Bowel sounds, Soft - Procedures Procedures: Procedures Procedure Code Date GROUP PSYCHOTHERAPY 01087 09/09/15 GROUP PSYCHOTHERAPY GZHZZZZ 09/09/15 GROUP PSYCHOTHERAPY 24525 08/25/15 GROUP PSYCHOTHERAPY GZHZZZZ 08/25/15 Assessment/Plan - Assessment Assessment: 1.CLAUDIO. 2.DJD. 3.PSYCHOSIS - Plan Plan: continue current treatment Nutritional Asmnt/Malnutr-PDOC - Dietary Evaluation Malnutrition Findings (Please click <Entered> for more info): Nutritional Asmnt/Malnutrition Start: 09/02/18 09: 03 Text: Status: Complete Freq: Protocol: Document 09/02/18 09:03 KHRIS (Rec: 09/02/18 09:20 KHRIS VALDES- FNS1) Nutritional Asmnt/Malnutrition Patient General Information Nutritional Screening Low Risk Diagnosis Psychosis Pertinent Medical Hx/Surgical Hx chronic back pain, degenerative joint disease, gastroesophageal reflux, schizophrenia. Subjective Information Per nursing notes, sexually inappropriate, withdrawn. Patient in room with the door closed. Not appropriate for dietary education Current Diet Order/ Nutrition Support Regular Patient / S.O Not Indicated Pertinent Medications Maalox, MOM, Theragran Pertinent Labs WNL Nutritional Hx/Data Height 1.8 m Height (Calculated Centimeters) 180.3 Current Weight (lbs) 89.811 kg Weight (Calculated Kilograms) 89.8 Weight (Calculated Grams) 11495.3 [place] Body Weight 172 % [place] Body Weight 115 Body Mass Index (BMI) 27.6 Recent Weight Change No Weight Status Overweight GI Symptoms GI Symptoms None Last BM 08/31 x 1 Difficult in: None Food Allergies No Cultural/Ethnic/Confucianist Belief none indicated Usual diet at home unknown Skin Integrity/Comment: Ezekiel 17, intact Current %PO Good (75-100%) Estimated Nutritional Goals BEE in Kcals: Using Current wt Calories/Kcals/Kg CBW 89.8kg 22-27 kcal/kg Kcals Calculated 4812-2719 kcal/day Protein: Using Current wt Protein g/k.8-1 gm/kg Protein Calculated 70-90 gm/day Fluid: ml 1234-5318 ml/day Nutritional Problem No current Nutrition Prob Problem No nutrition diagnosis at this time Intervention/Recommendation Comments Continue regular diet as tolerated by patient. Expected Outcomes/Goals Expected Outcomes/Goals Oral intake >75% of meals, weight stable, nutrition related labs WNL F/U LR 09/09
[2018-09-09] MEDS ORDERED: Haloperidol Lactate 5 mg/mL 1mL Vial IM ONE (21:52)
--- NOTE | 2018-09-09 23:52 | Progress Notes ---
DATE: 09/08/2018 DATE OF SERVICE: 09/08/2018 PSYCHOLOGY PROGRESS NOTE SUBJECTIVE: The patient is spoken to and interviewed. Case is discussed with staff. The staff reports the patient is verbalizing sexually suggestive and obscene comments to the female staff. Impulse control is still impaired. The patient is sexually preoccupied. The patient tends to be isolative in his room. OBJECTIVE: Mood is irritable. Affect is constricted. Thought process indicates psychotic process with perseveration on sexual gestures and comments. The patient's behavior is being closely monitored and given consistent redirection and limit setting. The patient is still sexually aggressive with the female staff with inappropriate sexual gestures and remarks. He continues to resist treatment. ASSESSMENT AND PLAN: The patient's psychosis and poor impulse control persists. The patient's inappropriate sexual behavior persists. We provided de- escalation and limit setting with cognitive and behavioral redirection. The patient is responding poorly to the interventions. We encouraged the patient to demonstrate self-regulation and appropriate behavior in his interactions with staff. The patient is noncompliant with behavioral interventions. The case will be reviewed with regard to the appropriate level of care with the attending psychiatrist. Followup is indicated; however, it is contingent on the patient's capacity to be able to benefit from these types of interventions. We will follow up in 2 days to reevaluate and reassess the patient on the next visit to continue psychology service. JOB# [id number] FARZANEH
[2018-09-10] MEDS: Haldol Oral Sol.(concentrate) 10 mg/5 mL Udc PO SCH ×2 (08:40→16:43)
[2018-09-10] MEDS: Multivitamin Tab PO SCH (08:41)
--- NOTE | 2018-09-10 13:32 | Progress Notes ---
DATE: 09/10/2018 PSYCHIATRIC PROGRESS NOTE SUBJECTIVE: Staff was spoken to. The patient is interviewed. Mood is noted to be less irritable. Affect is appropriate. The patient has been out of control last night and the patient has to be given a dose of Haldol, Benadryl and Ativan. The patient has been coming down at this time. Insight and judgment are improving. Impulse control seems to be fair. No side effects to the medications are noted. ASSESSMENT: The patient's psychosis is resolving. PLAN: To continue the patient with the current medications. programming manager has been spoken to, they are able to find a placement, they are awaiting an approval of the [facility], if the [facility] is going to be paying for that one or not. Plan to continue the patient with supportive therapy and followup. JOB# [id number]
--- NOTE | 2018-09-10 16:20 | General Progress Note ---
Subjective - Review of Systems Service Date: 09/10/18 Subjective: resting comfortably no distress Objective - Results Result Diagrams: 08/29/18 06:00 08/29/18 06:00 Recent Labs: Laboratory Last Values WBC 8.1 Th/cmm (4.8-10.8) 08/29/18 06:00 RBC 4.89 Mil/cmm (3.80-5.80) 08/29/18 06:00 Hgb 14.2 gm/dL (12-16) 08/29/18 06:00 Hct 43.9 % (41.0-60) 08/29/18 06:00 MCV 89.6 fl (80-99) 08/29/18 06:00 MCH 28.9 pg (27.0-31.0) 08/29/18 06:00 MCHC Differential 32.3 pg (28.0-36.0) 08/29/18 06:00 RDW 15.8 % (11.5-20.0) 08/29/18 06:00 Plt Count 159 Th/cmm (150-400) 08/29/18 06:00 MPV 7.8 fl 08/29/18 06:00 Add Manual Diff YES 08/29/18 06:00 Band Neutrophils % 0 % (0-10) 08/29/18 06:00 Neutrophils (Manual) 52.0 % (40-80) 08/29/18 06:00 Lymphocytes 27.9 % (20-50) 08/29/18 06:00 Monocytes 15.4 % (2-10) H 08/29/18 06:00 Eosinophils 4.3 % (0-5) 08/29/18 06:00 Basophils 0.4 % (0-3) 08/29/18 06:00 Sodium 139 mEq/L (136-145) 08/29/18 06:00 Potassium 3.8 mEq/L (3.5-5.1) 08/29/18 06:00 Chloride 104 mEq/L (98-107) 08/29/18 06:00 Carbon Dioxide 25.7 mEq/L (21.0-31.0) 08/29/18 06:00 Anion Gap 13.1 (7.0-16.0) 08/29/18 06:00 BUN 12 mg/dL (7-25) 08/29/18 06:00 Creatinine 0.7 mg/dL (0.7-1.3) 08/29/18 06:00 Est GFR ( Amer) > 60.0 ml/min (>90) 08/29/18 06:00 Est GFR (Non-Af Amer) > 60.0 ml/min 08/29/18 06:00 BUN/Creatinine Ratio 17.1 08/29/18 06:00 Glucose 100 mg/dL (70-105) 08/29/18 06:00 POC Glucose 93 MG/DL (70 - 105) 08/29/18 06:18 Calcium 9.0 mg/dL (8.6-10.3) 08/29/18 06:00 Triglycerides 65 mg/dL (<150) 08/29/18 06:00 Cholesterol 132 mg/dL (<200) 08/29/18 06:00 LDL Cholesterol Direct 78 mg/dL (75-193) 08/29/18 06:00 HDL Cholesterol 36 mg/dL (23-92) 08/29/18 06:00 TSH 1.94 uIU/ml (0.34-5.60) 08/29/18 06:00 Urine Source CLEAN C 09/03/18 14:00 Urine Color STRAW 09/03/18 14:00 Urine Clarity CLEAR (CLEAR) 09/03/18 14:00 Urine pH 6.5 (4.6 - 8.0) 09/03/18 14:00 Ur Specific [place] 1.010 (1.005-1.030) 09/03/18 14:00 Urine Protein NEGATIVE mg/dL (NEGATIVE) 09/03/18 14:00 Urine Glucose (UA) NEGATIVE mg/dL (NEGATIVE) 09/03/18 14:00 Urine Ketones NEGATIVE mg/dL (NEGATIVE) 09/03/18 14:00 Urine Blood NEGATIVE (NEGATIVE) 09/03/18 14:00 Urine Nitrate NEGATIVE (NEGATIVE) 09/03/18 14:00 Urine Bilirubin NEGATIVE (NEGATIVE) 09/03/18 14:00 Urine Urobilinogen 0.2 E.U./dL (0.2 - 1.0) 09/03/18 14:00 Ur Leukocyte Esterase NEGATIVE (NEGATIVE) 09/03/18 14:00 Valproic Acid < 10.0 ug/mL (50.0-100.0) L 08/29/18 06:00 - Physical Exam Vitals and I&O: Vital Signs Temp 98.1 F 09/09/18 14:00 Pulse 71 09/09/18 14:00 Resp 20 09/09/18 14:00 BP 107/65 09/09/18 14:00 Pulse Ox 98 09/09/18 14:00 Intake & Output 09/09/18 09/10/18 09/10/18 18:59 06:59 18:59 Intake Total 1400 120 Balance 1400 120 Intake: Oral 1400 120 Other: # Voids 3 2 # Bowel Movements 0 0 Active Medications: Current Medications Acetaminophen (Tylenol) 650 mg PO Q4HR PRN PRN Reason: Mild Pain / Temp above 100 Stop: 10/28/18 00:53 Last Admin: 09/02/18 01:28 Dose: 650 mg Al Hydrox/Mg Hydrox/Simethicone (Maalox) 30 ml PO Q4HR PRN PRN Reason: GI DISTRESS Stop: 10/28/18 00:53 Benztropine Mesylate (Cogentin) 0.5 mg PO HS VIKTOR Stop: 10/29/18 20:59 Last Admin: 09/09/18 21:16 Dose: Not Given Divalproex Sodium (Depakote Dr) 500 mg PO BID VIKTOR; Protocol Stop: 11/08/18 16:59 Last Admin: 09/10/18 08:41 Dose: 500 mg Haloperidol Lactate (Haldol Concentrate 10mg/5ml Susp) 5 mg PO BID VIKTOR; Protocol Stop: 11/05/18 08:59 Last Admin: 09/10/18 08:40 Dose: 5 mg Lorazepam (Ativan) 0.5 mg PO Q6HR PRN; Protocol PRN Reason: Anxiety Stop: 09/28/18 00:53 Last Admin: 09/10/18 08:41 Dose: 0.5 mg Magnesium Hydroxide (Milk Of Magnesia) 30 ml PO HS PRN PRN Reason: Constipation Multivitamins/Vitamin C (Theragran) 1 tab PO DAILY VIKTOR Stop: 10/28/18 08:59 Last Admin: 09/10/18 08:41 Dose: 1 tab Temazepam (Restoril) 15 mg PO HS PRN; Protocol PRN Reason: Insomnia Stop: 10/28/18 21:23 Last Admin: 09/06/18 21:03 Dose: 15 mg General: No acute distress HEENT: Atraumatic Neck: Supple Cardiovascular: Regular rate, Normal S1, Normal S2 Lungs: Clear to auscultation Abdomen: Bowel sounds, Soft - Procedures Procedures: Procedures Procedure Code Date GROUP PSYCHOTHERAPY 78522 09/09/15 GROUP PSYCHOTHERAPY GZHZZZZ 09/09/15 GROUP PSYCHOTHERAPY 42470 08/25/15 GROUP PSYCHOTHERAPY GZHZZZZ 08/25/15 Assessment/Plan - Assessment Assessment: 1.CLAUDIO. 2.DJD. 3.PSYCHOSIS - Plan Plan: continue current treatment Nutritional Asmnt/Malnutr-PDOC - Dietary Evaluation Malnutrition Findings (Please click <Entered> for more info): Nutritional Asmnt/Malnutrition Start: 09/02/18 09: 03 Text: Status: Complete Freq: Protocol: Document 09/02/18 09:03 KHRIS (Rec: 09/02/18 09:20 KHRIS VALDES- FNS1) Nutritional Asmnt/Malnutrition Patient General Information Nutritional Screening Low Risk Diagnosis Psychosis Pertinent Medical Hx/Surgical Hx chronic back pain, degenerative joint disease, gastroesophageal reflux, schizophrenia. Subjective Information Per nursing notes, sexually inappropriate, withdrawn. Patient in room with the door closed. Not appropriate for dietary education Current Diet Order/ Nutrition Support Regular Patient / S.O Not Indicated Pertinent Medications Maalox, MOM, Theragran Pertinent Labs WNL Nutritional Hx/Data Height 1.8 m Height (Calculated Centimeters) 180.3 Current Weight (lbs) 89.811 kg Weight (Calculated Kilograms) 89.8 Weight (Calculated Grams) 18050.3 [place] Body Weight 172 % [place] Body Weight 115 Body Mass Index (BMI) 27.6 Recent Weight Change No Weight Status Overweight GI Symptoms GI Symptoms None Last BM 08/31 x 1 Difficult in: None Food Allergies No Cultural/Ethnic/J[employer] Belief none indicated Usual diet at home unknown Skin Integrity/Comment: Ezekiel 17, intact Current %PO Good (75-100%) Estimated Nutritional Goals BEE in Kcals: Using Current wt Calories/Kcals/Kg CBW 89.8kg 22-27 kcal/kg Kcals Calculated 0089-7772 kcal/day Protein: Using Current wt Protein g/k.8-1 gm/kg Protein Calculated 70-90 gm/day Fluid: ml 4038-7735 ml/day Nutritional Problem No current Nutrition Prob Problem No nutrition diagnosis at this time Intervention/Recommendation Comments Continue regular diet as tolerated by patient. Expected Outcomes/Goals Expected Outcomes/Goals Oral intake >75% of meals, weight stable, nutrition related labs WNL F/U LR 09/09
[2018-09-11] MEDS: Haldol Oral Sol.(concentrate) 10 mg/5 mL Udc PO SCH ×2 (08:35→08:36)
[2018-09-11] MEDS: Multivitamin Tab PO SCH ×2 (08:36→09:00)
--- NOTE | 2018-09-11 19:53 | Internal Medicine Prog Note ---
Internal Medicine Subjective - Subjective Service Date: 09/11/18 Patient seen and examined:: with staff (HE FEELS WELL) Patient is:: awake, verbal, in bed, talking Per staff patient has:: no adverse event Internal Medicine Objective - Results Result Diagrams: 08/29/18 06:00 08/29/18 06:00 Recent Labs: Laboratory Last Values WBC 8.1 Th/cmm (4.8-10.8) 08/29/18 06:00 RBC 4.89 Mil/cmm (3.80-5.80) 08/29/18 06:00 Hgb 14.2 gm/dL (12-16) 08/29/18 06:00 Hct 43.9 % (41.0-60) 08/29/18 06:00 MCV 89.6 fl (80-99) 08/29/18 06:00 MCH 28.9 pg (27.0-31.0) 08/29/18 06:00 MCHC Differential 32.3 pg (28.0-36.0) 08/29/18 06:00 RDW 15.8 % (11.5-20.0) 08/29/18 06:00 Plt Count 159 Th/cmm (150-400) 08/29/18 06:00 MPV 7.8 fl 08/29/18 06:00 Add Manual Diff YES 08/29/18 06:00 Band Neutrophils % 0 % (0-10) 08/29/18 06:00 Neutrophils (Manual) 52.0 % (40-80) 08/29/18 06:00 Lymphocytes 27.9 % (20-50) 08/29/18 06:00 Monocytes 15.4 % (2-10) H 08/29/18 06:00 Eosinophils 4.3 % (0-5) 08/29/18 06:00 Basophils 0.4 % (0-3) 08/29/18 06:00 Sodium 139 mEq/L (136-145) 08/29/18 06:00 Potassium 3.8 mEq/L (3.5-5.1) 08/29/18 06:00 Chloride 104 mEq/L (98-107) 08/29/18 06:00 Carbon Dioxide 25.7 mEq/L (21.0-31.0) 08/29/18 06:00 Anion Gap 13.1 (7.0-16.0) 08/29/18 06:00 BUN 12 mg/dL (7-25) 08/29/18 06:00 Creatinine 0.7 mg/dL (0.7-1.3) 08/29/18 06:00 Est GFR ( Amer) > 60.0 ml/min (>90) 08/29/18 06:00 Est GFR (Non-Af Amer) > 60.0 ml/min 08/29/18 06:00 BUN/Creatinine Ratio 17.1 08/29/18 06:00 Glucose 100 mg/dL (70-105) 08/29/18 06:00 POC Glucose 93 MG/DL (70 - 105) 08/29/18 06:18 Calcium 9.0 mg/dL (8.6-10.3) 08/29/18 06:00 Triglycerides 65 mg/dL (<150) 08/29/18 06:00 Cholesterol 132 mg/dL (<200) 08/29/18 06:00 LDL Cholesterol Direct 78 mg/dL (75-193) 08/29/18 06:00 HDL Cholesterol 36 mg/dL (23-92) 08/29/18 06:00 TSH 1.94 uIU/ml (0.34-5.60) 08/29/18 06:00 Urine Source CLEAN C 09/03/18 14:00 Urine Color STRAW 09/03/18 14:00 Urine Clarity CLEAR (CLEAR) 09/03/18 14:00 Urine pH 6.5 (4.6 - 8.0) 09/03/18 14:00 Ur Specific [place] 1.010 (1.005-1.030) 09/03/18 14:00 Urine Protein NEGATIVE mg/dL (NEGATIVE) 09/03/18 14:00 Urine Glucose (UA) NEGATIVE mg/dL (NEGATIVE) 09/03/18 14:00 Urine Ketones NEGATIVE mg/dL (NEGATIVE) 09/03/18 14:00 Urine Blood NEGATIVE (NEGATIVE) 09/03/18 14:00 Urine Nitrate NEGATIVE (NEGATIVE) 09/03/18 14:00 Urine Bilirubin NEGATIVE (NEGATIVE) 09/03/18 14:00 Urine Urobilinogen 0.2 E.U./dL (0.2 - 1.0) 09/03/18 14:00 Ur Leukocyte Esterase NEGATIVE (NEGATIVE) 09/03/18 14:00 Valproic Acid < 10.0 ug/mL (50.0-100.0) L 08/29/18 06:00 - Physical Exam Vitals and I&O: Vital Signs Temp 0 F 09/11/18 19:43 Pulse 86 09/11/18 14:00 Resp 18 09/11/18 14:00 BP 109/64 09/11/18 14:00 Pulse Ox 96 09/11/18 14:00 Intake & Output 09/11/18 09/11/18 09/12/18 06:59 18:59 06:59 Intake Total 120 2200 120 Balance 120 2200 120 Intake: Oral 120 2200 120 Other: # Voids 1 4 3 # Bowel Movements 0 0 Active Medications: Current Medications Acetaminophen (Tylenol) 650 mg PO Q4HR PRN PRN Reason: Mild Pain / Temp above 100 Stop: 10/28/18 00:53 Last Admin: 09/11/18 05:19 Dose: 650 mg Al Hydrox/Mg Hydrox/Simethicone (Maalox) 30 ml PO Q4HR PRN PRN Reason: GI DISTRESS Stop: 10/28/18 00:53 Benztropine Mesylate (Cogentin) 0.5 mg PO HS VIKTOR Stop: 10/29/18 20:59 Last Admin: 09/10/18 21:21 Dose: Not Given Divalproex Sodium (Depakote Dr) 500 mg PO BID VIKTOR Stop: 11/10/18 16:59 Last Admin: 09/11/18 17:00 Dose: Not Given Haloperidol (Haldol) 5 mg PO BID VIKTOR; Protocol Stop: 11/05/18 16:59 Last Admin: 09/11/18 17:00 Dose: Not Given Lorazepam (Ativan) 0.5 mg PO Q6HR PRN; Protocol PRN Reason: Anxiety Stop: 09/28/18 00:53 Last Admin: 09/11/18 05:19 Dose: 0.5 mg Magnesium Hydroxide (Milk Of Magnesia) 30 ml PO HS PRN PRN Reason: Constipation Multivitamins/Vitamin C (Theragran) 1 tab PO DAILY VIKTOR Stop: 10/28/18 08:59 Last Admin: 09/11/18 09:00 Dose: Not Given Temazepam (Restoril) 15 mg PO HS PRN; Protocol PRN Reason: Insomnia Stop: 10/28/18 21:23 Last Admin: 09/06/18 21:03 Dose: 15 mg General: alert HEENT: NC/AT, PERRLA, EOMI, anicteric sclerae, throat clear Neck: Supple, No JVD, No thyromegaly, +2 carotid pulse wo bruit, No LAD, + JVD Lungs: CTAB Cardiovascular: Normal S1, Normal S2, without murmur Abdomen: soft, non-tender, non-distended Extremities: clear Neurological: no change - Procedures Procedures: Procedures Procedure Code Date GROUP PSYCHOTHERAPY 02568 09/09/15 GROUP PSYCHOTHERAPY GZHZZZZ 09/09/15 GROUP PSYCHOTHERAPY 37882 08/25/15 GROUP PSYCHOTHERAPY GZHZZZZ 08/25/15 Internal Medicine Assmt/Plan - Assessment Assessment: 1.CLAUDIO. 2.DJD. 3.PSYCHOSIS - Plan Plan: CONTINUE ON CURRENT MEDICATION AND DIET. Nutritional Asmnt/Malnutr-PDOC - Dietary Evaluation Malnutrition Findings (Please click <Entered> for more info): Nutritional Asmnt/Malnutrition Start: 09/02/18 09: 03 Text: Status: Complete Freq: Protocol: Document 09/02/18 09:03 MMTOMY (Rec: 09/02/18 09:20 MMTOMY VALDES- FNS1) Nutritional Asmnt/Malnutrition Patient General Information Nutritional Screening Low Risk Diagnosis Psychosis Pertinent Medical Hx/Surgical Hx chronic back pain, degenerative joint disease, gastroesophageal reflux, schizophrenia. Subjective Information Per nursing notes, sexually inappropriate, withdrawn. Patient in room with the door closed. Not appropriate for dietary education Current Diet Order/ Nutrition Support Regular Patient / S.O Not Indicated Pertinent Medications Maalox, MOM, Theragran Pertinent Labs WNL Nutritional Hx/Data Height 1.8 m Height (Calculated Centimeters) 180.3 Current Weight (lbs) 89.811 kg Weight (Calculated Kilograms) 89.8 Weight (Calculated Grams) 59663.3 [place] Body Weight 172 % [place] Body Weight 115 Body Mass Index (BMI) 27.6 Recent Weight Change No Weight Status Overweight GI Symptoms GI Symptoms None Last BM 08/31 x 1 Difficult in: None Food Allergies No Cultural/Ethnic/Scientology Belief none indicated Usual diet at home unknown Skin Integrity/Comment: Ezekiel 17, intact Current %PO Good (75-100%) Estimated Nutritional Goals BEE in Kcals: Using Current wt Calories/Kcals/Kg CBW 89.8kg 22-27 kcal/kg Kcals Calculated 4456-2416 kcal/day Protein: Using Current wt Protein g/k.8-1 gm/kg Protein Calculated 70-90 gm/day Fluid: ml 6721-2462 ml/day Nutritional Problem No current Nutrition Prob Problem No nutrition diagnosis at this time Intervention/Recommendation Comments Continue regular diet as tolerated by patient. Expected Outcomes/Goals Expected Outcomes/Goals Oral intake >75% of meals, weight stable, nutrition related labs WNL F/U LR 09/09
--- NOTE | 2018-09-12 01:28 | Progress Notes ---
DATE: 09/11/2018 SUBJECTIVE: Staff was spoken to. The patient is interviewed. Mood is noted to be irritable. Affect is constricted. The patient is stating that he is a and he needs to be sent to a decent place. The patient has been displaying sexually inappropriate behavior. No placement has been available so far. Coping skills at this time are noted to be poor. wireless development manager has been looking for possible placement of this patient. ASSESSMENT: The patient is still paranoid and impulsive. PLAN: To continue the patient with the current medications and follow up with supportive therapy. JOB# [id number]
[2018-09-12] MEDS: Multivitamin Tab PO SCH (08:56)
--- NOTE | 2018-09-12 14:39 | Progress Notes ---
DATE: 09/11/2018 SUBJECTIVE: The patient was spoken to. The patient did not respond verbally. Mood is irritable; however, the patient was cooperative. Affect is mood congruent. Staff reports the patient continues to have episodes of unredirectable behavior. OBJECTIVE: Mood is less irritable. Affect is constricted. Thought process, continues to include perseveration on sexual ideation and fantasy. Staff reports the patient has not displayed any disrobing or public masturbation in the last day. The patient has not made any overt comments or gestures to the female staff. The patient did not answer questions about hallucinations or delusions. ASSESSMENT AND PLAN: The patient is scheduled to possibly be discharged in the next 1-2 days. The casework manager is awaiting placement confirmation. This requires a [facility] approval. We provided supportive therapy, which included reality integration. We provided positive reinforcement and remotivation for the patient to demonstrate appropriate behavior and emotional and self-regulation. We provided limit setting. We provided cognitive and behavioral redirection. We provided coping strategies. No followup is indicated. The patient is most likely being discharged in the next day or two. Prognosis is poor. JOB# [id number] FARZANEH
--- NOTE | 2018-09-12 19:44 | Progress Notes ---
DATE: 09/12/2018 SUBJECTIVE: Staff was spoken to. The patient is interviewed. Mood is noted to be irritable. Affect is constricted. Insight and judgment are noted to be still impaired. Impulse control is noted to be poor. The patient has been presenting with a grandiose delusions today. The patient is stating that he has been trying to get in touch with the people at [facility]. 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 The patient has no insight into his illness. The patient also has been stating that he has been trying to get in touch with the family, but no one is responding. ASSESSMENT: The patient is still psychotic and awaiting placement. PLAN: To continue the patient with the supportive therapy and followup. JOB# [id number]
--- NOTE | 2018-09-12 21:14 | Internal Medicine Prog Note ---
Internal Medicine Subjective - Subjective Service Date: 09/12/18 Patient seen and examined:: with staff (HE FEELS WELL,NO COMPLAINT) Patient is:: awake, verbal, in bed, talking Per staff patient has:: no adverse event Internal Medicine Objective - Results Result Diagrams: 08/29/18 06:00 08/29/18 06:00 Recent Labs: Laboratory Last Values WBC 8.1 Th/cmm (4.8-10.8) 08/29/18 06:00 RBC 4.89 Mil/cmm (3.80-5.80) 08/29/18 06:00 Hgb 14.2 gm/dL (12-16) 08/29/18 06:00 Hct 43.9 % (41.0-60) 08/29/18 06:00 MCV 89.6 fl (80-99) 08/29/18 06:00 MCH 28.9 pg (27.0-31.0) 08/29/18 06:00 MCHC Differential 32.3 pg (28.0-36.0) 08/29/18 06:00 RDW 15.8 % (11.5-20.0) 08/29/18 06:00 Plt Count 159 Th/cmm (150-400) 08/29/18 06:00 MPV 7.8 fl 08/29/18 06:00 Add Manual Diff YES 08/29/18 06:00 Band Neutrophils % 0 % (0-10) 08/29/18 06:00 Neutrophils (Manual) 52.0 % (40-80) 08/29/18 06:00 Lymphocytes 27.9 % (20-50) 08/29/18 06:00 Monocytes 15.4 % (2-10) H 08/29/18 06:00 Eosinophils 4.3 % (0-5) 08/29/18 06:00 Basophils 0.4 % (0-3) 08/29/18 06:00 Sodium 139 mEq/L (136-145) 08/29/18 06:00 Potassium 3.8 mEq/L (3.5-5.1) 08/29/18 06:00 Chloride 104 mEq/L (98-107) 08/29/18 06:00 Carbon Dioxide 25.7 mEq/L (21.0-31.0) 08/29/18 06:00 Anion Gap 13.1 (7.0-16.0) 08/29/18 06:00 BUN 12 mg/dL (7-25) 08/29/18 06:00 Creatinine 0.7 mg/dL (0.7-1.3) 08/29/18 06:00 Est GFR ( Amer) > 60.0 ml/min (>90) 08/29/18 06:00 Est GFR (Non-Af Amer) > 60.0 ml/min 08/29/18 06:00 BUN/Creatinine Ratio 17.1 08/29/18 06:00 Glucose 100 mg/dL (70-105) 08/29/18 06:00 POC Glucose 93 MG/DL (70 - 105) 08/29/18 06:18 Calcium 9.0 mg/dL (8.6-10.3) 08/29/18 06:00 Triglycerides 65 mg/dL (<150) 08/29/18 06:00 Cholesterol 132 mg/dL (<200) 08/29/18 06:00 LDL Cholesterol Direct 78 mg/dL (75-193) 08/29/18 06:00 HDL Cholesterol 36 mg/dL (23-92) 08/29/18 06:00 TSH 1.94 uIU/ml (0.34-5.60) 08/29/18 06:00 Urine Source CLEAN C 09/03/18 14:00 Urine Color STRAW 09/03/18 14:00 Urine Clarity CLEAR (CLEAR) 09/03/18 14:00 Urine pH 6.5 (4.6 - 8.0) 09/03/18 14:00 Ur Specific [place] 1.010 (1.005-1.030) 09/03/18 14:00 Urine Protein NEGATIVE mg/dL (NEGATIVE) 09/03/18 14:00 Urine Glucose (UA) NEGATIVE mg/dL (NEGATIVE) 09/03/18 14:00 Urine Ketones NEGATIVE mg/dL (NEGATIVE) 09/03/18 14:00 Urine Blood NEGATIVE (NEGATIVE) 09/03/18 14:00 Urine Nitrate NEGATIVE (NEGATIVE) 09/03/18 14:00 Urine Bilirubin NEGATIVE (NEGATIVE) 09/03/18 14:00 Urine Urobilinogen 0.2 E.U./dL (0.2 - 1.0) 09/03/18 14:00 Ur Leukocyte Esterase NEGATIVE (NEGATIVE) 09/03/18 14:00 Valproic Acid < 10.0 ug/mL (50.0-100.0) L 08/29/18 06:00 - Physical Exam Vitals and I&O: Vital Signs Temp 97.6 F 09/12/18 14:00 Pulse 94 09/12/18 14:00 Resp 18 09/12/18 14:00 BP 106/71 09/12/18 14:00 Pulse Ox 97 09/12/18 14:00 Intake & Output 09/12/18 09/12/18 09/13/18 06:59 18:59 06:59 Intake Total 520 1600 Balance 520 1600 Intake: Oral 120 1600 Other 400 Other: # Voids 3 4 # Bowel Movements 0 1 Active Medications: Current Medications Acetaminophen (Tylenol) 650 mg PO Q4HR PRN PRN Reason: Mild Pain / Temp above 100 Stop: 10/28/18 00:53 Last Admin: 09/11/18 05:19 Dose: 650 mg Al Hydrox/Mg Hydrox/Simethicone (Maalox) 30 ml PO Q4HR PRN PRN Reason: GI DISTRESS Stop: 10/28/18 00:53 Benztropine Mesylate (Cogentin) 0.5 mg PO HS VIKTOR Stop: 10/29/18 20:59 Last Admin: 09/12/18 20:16 Dose: Not Given Divalproex Sodium (Depakote Dr) 500 mg PO BID VIKTOR Stop: 11/10/18 16:59 Last Admin: 09/12/18 17:14 Dose: 500 mg Haloperidol (Haldol) 5 mg PO BID VIKTOR; Protocol Stop: 11/05/18 16:59 Last Admin: 09/12/18 17:13 Dose: 5 mg Lorazepam (Ativan) 0.5 mg PO Q6HR PRN; Protocol PRN Reason: Anxiety Stop: 09/28/18 00:53 Last Admin: 09/12/18 17:14 Dose: 0.5 mg Magnesium Hydroxide (Milk Of Magnesia) 30 ml PO HS PRN PRN Reason: Constipation Multivitamins/Vitamin C (Theragran) 1 tab PO DAILY VIKTOR Stop: 10/28/18 08:59 Last Admin: 09/12/18 08:56 Dose: 1 tab Temazepam (Restoril) 15 mg PO HS PRN; Protocol PRN Reason: Insomnia Stop: 10/28/18 21:23 Last Admin: 09/06/18 21:03 Dose: 15 mg General: alert HEENT: NC/AT, PERRLA, EOMI, anicteric sclerae, throat clear Neck: Supple, No JVD, No thyromegaly, +2 carotid pulse wo bruit, No LAD, + JVD Lungs: CTAB Cardiovascular: Normal S1, Normal S2, without murmur Abdomen: soft, non-tender, non-distended Extremities: clear Neurological: no change - Procedures Procedures: Procedures Procedure Code Date GROUP PSYCHOTHERAPY 28155 09/09/15 GROUP PSYCHOTHERAPY GZHZZZZ 09/09/15 GROUP PSYCHOTHERAPY 11253 08/25/15 GROUP PSYCHOTHERAPY GZHZZZZ 08/25/15 Internal Medicine Assmt/Plan - Assessment Assessment: 1.CLAUDIO. 2.DJD. 3.PSYCHOSIS - Plan Plan: CONTINUE ON CURRENT MEDICATION AND DIET. Nutritional Asmnt/Malnutr-PDOC - Dietary Evaluation Malnutrition Findings (Please click <Entered> for more info): Nutritional Asmnt/Malnutrition Start: 09/02/18 09: 03 Text: Status: Complete Freq: Protocol: Document 09/02/18 09:03 MMTOMY (Rec: 09/02/18 09:20 MMTOMY VALDES- FNS1) Nutritional Asmnt/Malnutrition Patient General Information Nutritional Screening Low Risk Diagnosis Psychosis Pertinent Medical Hx/Surgical Hx chronic back pain, degenerative joint disease, gastroesophageal reflux, schizophrenia. Subjective Information Per nursing notes, sexually inappropriate, withdrawn. Patient in room with the door closed. Not appropriate for dietary education Current Diet Order/ Nutrition Support Regular Patient / S.O Not Indicated Pertinent Medications Maalox, MOM, Theragran Pertinent Labs WNL Nutritional Hx/Data Height 1.8 m Height (Calculated Centimeters) 180.3 Current Weight (lbs) 89.811 kg Weight (Calculated Kilograms) 89.8 Weight (Calculated Grams) 26081.3 [place] Body Weight 172 % [place] Body Weight 115 Body Mass Index (BMI) 27.6 Recent Weight Change No Weight Status Overweight GI Symptoms GI Symptoms None Last BM 08/31 x 1 Difficult in: None Food Allergies No Cultural/Ethnic/Shinto Belief none indicated Usual diet at home unknown Skin Integrity/Comment: Ezekiel 17, intact Current %PO Good (75-100%) Estimated Nutritional Goals BEE in Kcals: Using Current wt Calories/Kcals/Kg CBW 89.8kg 22-27 kcal/kg Kcals Calculated 2356-9146 kcal/day Protein: Using Current wt Protein g/k.8-1 gm/kg Protein Calculated 70-90 gm/day Fluid: ml 0185-8983 ml/day Nutritional Problem No current Nutrition Prob Problem No nutrition diagnosis at this time Intervention/Recommendation Comments Continue regular diet as tolerated by patient. Expected Outcomes/Goals Expected Outcomes/Goals Oral intake >75% of meals, weight stable, nutrition related labs WNL F/U LR 09/09
[2018-09-13] MEDS: Multivitamin Tab PO SCH (08:46)
--- NOTE | 2018-09-13 22:00 | Internal Medicine Prog Note ---
Internal Medicine Subjective - Subjective Service Date: 09/13/18 Patient seen and examined:: with staff (HE IS DOING BETTER) Patient is:: awake, verbal, in bed, talking Per staff patient has:: no adverse event Internal Medicine Objective - Results Result Diagrams: 08/29/18 06:00 08/29/18 06:00 Recent Labs: Laboratory Last Values WBC 8.1 Th/cmm (4.8-10.8) 08/29/18 06:00 RBC 4.89 Mil/cmm (3.80-5.80) 08/29/18 06:00 Hgb 14.2 gm/dL (12-16) 08/29/18 06:00 Hct 43.9 % (41.0-60) 08/29/18 06:00 MCV 89.6 fl (80-99) 08/29/18 06:00 MCH 28.9 pg (27.0-31.0) 08/29/18 06:00 MCHC Differential 32.3 pg (28.0-36.0) 08/29/18 06:00 RDW 15.8 % (11.5-20.0) 08/29/18 06:00 Plt Count 159 Th/cmm (150-400) 08/29/18 06:00 MPV 7.8 fl 08/29/18 06:00 Add Manual Diff YES 08/29/18 06:00 Band Neutrophils % 0 % (0-10) 08/29/18 06:00 Neutrophils (Manual) 52.0 % (40-80) 08/29/18 06:00 Lymphocytes 27.9 % (20-50) 08/29/18 06:00 Monocytes 15.4 % (2-10) H 08/29/18 06:00 Eosinophils 4.3 % (0-5) 08/29/18 06:00 Basophils 0.4 % (0-3) 08/29/18 06:00 Sodium 139 mEq/L (136-145) 08/29/18 06:00 Potassium 3.8 mEq/L (3.5-5.1) 08/29/18 06:00 Chloride 104 mEq/L (98-107) 08/29/18 06:00 Carbon Dioxide 25.7 mEq/L (21.0-31.0) 08/29/18 06:00 Anion Gap 13.1 (7.0-16.0) 08/29/18 06:00 BUN 12 mg/dL (7-25) 08/29/18 06:00 Creatinine 0.7 mg/dL (0.7-1.3) 08/29/18 06:00 Est GFR ( Amer) > 60.0 ml/min (>90) 08/29/18 06:00 Est GFR (Non-Af Amer) > 60.0 ml/min 08/29/18 06:00 BUN/Creatinine Ratio 17.1 08/29/18 06:00 Glucose 100 mg/dL (70-105) 08/29/18 06:00 POC Glucose 93 MG/DL (70 - 105) 08/29/18 06:18 Calcium 9.0 mg/dL (8.6-10.3) 08/29/18 06:00 Triglycerides 65 mg/dL (<150) 08/29/18 06:00 Cholesterol 132 mg/dL (<200) 08/29/18 06:00 LDL Cholesterol Direct 78 mg/dL (75-193) 08/29/18 06:00 HDL Cholesterol 36 mg/dL (23-92) 08/29/18 06:00 TSH 1.94 uIU/ml (0.34-5.60) 08/29/18 06:00 Urine Source CLEAN C 09/03/18 14:00 Urine Color STRAW 09/03/18 14:00 Urine Clarity CLEAR (CLEAR) 09/03/18 14:00 Urine pH 6.5 (4.6 - 8.0) 09/03/18 14:00 Ur Specific [place]pp 1.010 (1.005-1.030) 09/03/18 14:00 Urine Protein NEGATIVE mg/dL (NEGATIVE) 09/03/18 14:00 Urine Glucose (UA) NEGATIVE mg/dL (NEGATIVE) 09/03/18 14:00 Urine Ketones NEGATIVE mg/dL (NEGATIVE) 09/03/18 14:00 Urine Blood NEGATIVE (NEGATIVE) 09/03/18 14:00 Urine Nitrate NEGATIVE (NEGATIVE) 09/03/18 14:00 Urine Bilirubin NEGATIVE (NEGATIVE) 09/03/18 14:00 Urine Urobilinogen 0.2 E.U./dL (0.2 - 1.0) 09/03/18 14:00 Ur Leukocyte Esterase NEGATIVE (NEGATIVE) 09/03/18 14:00 Valproic Acid < 10.0 ug/mL (50.0-100.0) L 08/29/18 06:00 - Physical Exam Vitals and I&O: Vital Signs Temp 97.5 F 09/13/18 14:00 Pulse 97 09/13/18 14:00 Resp 20 09/13/18 14:00 BP 136/79 09/13/18 14:00 Pulse Ox 98 09/13/18 14:00 Intake & Output 09/13/18 09/13/18 09/14/18 06:59 18:59 06:59 Intake Total 120 Balance 120 Intake: Oral 120 Other: # Voids 3 Active Medications: Current Medications Acetaminophen (Tylenol) 650 mg PO Q4HR PRN PRN Reason: Mild Pain / Temp above 100 Stop: 10/28/18 00:53 Last Admin: 09/11/18 05:19 Dose: 650 mg Al Hydrox/Mg Hydrox/Simethicone (Maalox) 30 ml PO Q4HR PRN PRN Reason: GI DISTRESS Stop: 10/28/18 00:53 Benztropine Mesylate (Cogentin) 0.5 mg PO HS VIKTOR Stop: 10/29/18 20:59 Last Admin: 09/13/18 21:26 Dose: 0.5 mg Divalproex Sodium (Depakote Dr) 500 mg PO BID VIKTOR Stop: 11/10/18 16:59 Last Admin: 09/13/18 16:06 Dose: 500 mg Haloperidol (Haldol) 5 mg PO BID VIKTOR; Protocol Stop: 11/05/18 16:59 Last Admin: 09/13/18 16:06 Dose: 5 mg Lorazepam (Ativan) 0.5 mg PO Q6HR PRN; Protocol PRN Reason: Anxiety Stop: 09/28/18 00:53 Last Admin: 09/13/18 16:06 Dose: 0.5 mg Magnesium Hydroxide (Milk Of Magnesia) 30 ml PO HS PRN PRN Reason: Constipation Multivitamins/Vitamin C (Theragran) 1 tab PO DAILY VIKTOR Stop: 10/28/18 08:59 Last Admin: 09/13/18 08:46 Dose: 1 tab Temazepam (Restoril) 15 mg PO HS PRN; Protocol PRN Reason: Insomnia Stop: 10/28/18 21:23 Last Admin: 09/06/18 21:03 Dose: 15 mg General: alert HEENT: NC/AT, PERRLA, EOMI, anicteric sclerae, throat clear Neck: Supple, No JVD, No thyromegaly, +2 carotid pulse wo bruit, No LAD, + JVD Lungs: CTAB Cardiovascular: Normal S1, Normal S2, without murmur Abdomen: soft, non-tender, non-distended Extremities: clear Neurological: no change - Procedures Procedures: Procedures Procedure Code Date GROUP PSYCHOTHERAPY 31858 09/09/15 GROUP PSYCHOTHERAPY [id number] 09/09/15 GROUP PSYCHOTHERAPY 43736 08/25/15 GROUP PSYCHOTHERAPY [id number] 08/25/15 Internal Medicine Assmt/Plan - Assessment Assessment: 1.CLAUDIO. 2.DJD. 3.PSYCHOSIS - Plan Plan: CONTINUE ON CURRENT MEDICATION AND DIET. Nutritional Asmnt/Malnutr-PDOC - Dietary Evaluation Malnutrition Findings (Please click <Entered> for more info): Nutritional Asmnt/Malnutrition Start: 09/02/18 09: 03 Text: Status: Complete Freq: Protocol: Document 09/02/18 09:03 KHRIS (Rec: 09/02/18 09:20 KHRIS LUCIO- [id number]) Nutritional Asmnt/Malnutrition Patient General Information Nutritional Screening Low Risk Diagnosis Psychosis Pertinent Medical Hx/Surgical Hx chronic back pain, degenerative joint disease, gastroesophageal reflux, schizophrenia. Subjective Information Per nursing notes, sexually inappropriate, withdrawn. Patient in room with the door closed. Not appropriate for dietary education Current Diet Order/ Nutrition Support Regular Patient / S.O Not Indicated Pertinent Medications Maalox, MOM, Theragran Pertinent Labs WNL Nutritional Hx/Data Height 1.8 m Height (Calculated Centimeters) 180.3 Current Weight (lbs) 89.811 kg Weight (Calculated Kilograms) 89.8 Weight (Calculated Grams) 92593.3 [place] Body Weight 172 % [place] Body Weight 115 Body Mass Index (BMI) 27.6 Recent Weight Change No Weight Status Overweight GI Symptoms GI Symptoms None Last BM 08/31 x 1 Difficult in: None Food Allergies No Cultural/Ethnic/[employer] Belief none indicated Usual diet at home unknown Skin Integrity/Comment: Ezekiel 17, intact Current %PO Good (75-100%) Estimated Nutritional Goals BEE in Kcals: Using Current wt Calories/Kcals/Kg CBW 89.8kg 22-27 kcal/kg Kcals Calculated 0561-9394 kcal/day Protein: Using Current wt Protein g/k.8-1 gm/kg Protein Calculated 70-90 gm/day Fluid: ml 4800-7479 ml/day Nutritional Problem No current Nutrition Prob Problem No nutrition diagnosis at this time Intervention/Recommendation Comments Continue regular diet as tolerated by patient. Expected Outcomes/Goals Expected Outcomes/Goals Oral intake >75% of meals, weight stable, nutrition related labs WNL F/U LR 09/09
[2018-09-13] MEDS ORDERED: Haloperidol Lactate 5 mg/mL 1mL Vial IM ONE (22:15)
--- NOTE | 2018-09-14 02:44 | Progress Notes ---
DATE: 09/13/2018 PSYCHOLOGY PROGRESS NOTE SUBJECTIVE: The patient was spoken to. Case is discussed with staff. The patient has not been making any overt sexual remarks or gestures to the female staff in the last 48 hours. The patient has not disrobed or made any overt gestures of a sexual nature. The patient is verbalizing plans for his future that seemed to have an element of grandiosity. The patient has been informed with respect to discharge and the delay concerning [facility] approval. The patient continues to have no insight into his illness. OBJECTIVE: Mood is irritable. Affect is constricted. Thought process shows to be grandiose. The patient denied any hallucinations or delusions; however, delusional content appears to be present. The patient denied any suicidal ideation, plan, or intention. The patient's behavior has been isolative for the most part. ASSESSMENT AND PLAN: The patient's psychosis and behavioral disturbance persist. The patient is awaiting placement. This account underwriter provided supportive therapy with review of appropriate behavior including limit setting, boundary awareness, and definitions. We encouraged the patient to demonstrate and self-regulation and to follow through with staff direction. We provided remotivation for the patient to become compliant and stay compliant with all aspects of his care and treatment. Followup is contingent on the patient's continued admission on the unit as well as reassessment to determine if the patient is able to demonstrate the capacity to benefit from continued psychology services. JOB# [id number] FARZANEH
--- NOTE | 2018-09-14 07:38 | Progress Notes ---
DATE: 09/13/2018 PSYCHIATRIC PROGRESS NOTE SUBJECTIVE: Staff was spoken to. The patient is interviewed. Mood is noted to be irritable. Affect is constricted. Coping skills are noted to be still poor. The patient is getting easily frustrated. The patient is stating that he needs to go to [facility] to [facility] Unit because he has a lot of work to do there. The patient's coping skills are noted to be very poor. The patient is frustrated. ASSESSMENT: The patient is awaiting placement. PLAN: To continue the patient with the current medications and follow up. [facility]# [id number]
[2018-09-14] MEDS: Multivitamin Tab PO SCH (09:37)
--- NOTE | 2018-09-15 04:44 | Progress Notes ---
DATE: 09/14/2018 SUBJECTIVE: The patient is interviewed. Mood is noted to be anxious. Affect is appropriate. Not suicidal or homicidal. Insight and judgment are noted to be improving. Impulse control is noted to be fair. No side effects to the medications are noted. The patient has been able to verbalize the concerns rather than to act out. The patient has been able to find a placement. ASSESSMENT: The patient is stabilizing. PLAN: To discharge the patient today for followup on outpatient basis. JOB# [id number]
== END 2018-09-14 16:10 | DRG 885 ==
LOC: GERO2 23:11 → GERO 08-29 17:53
DX: F29 Unspecified psychosis not due to a substance or known physiological condition (principal); F03.91 Unspecified dementia, unspecified severity, with behavioral disturbance; M19.90 Unspecified osteoarthritis, unspecified site; M54.9 Dorsalgia, unspecified; K21.9 Gastro-esophageal reflux disease without esophagitis; G89.29 Other chronic pain
CPT/HCPCS: 36415-UA; 80048-TC; 80061-TC; 80164-TC; 81003-TC; 82948-90; 83036-90; 84443-TC; 85007-TC; 85025-TC; A4216; J1200; J1630; J2060; Z7610